=== PATIENT | male | born 1945 | race Caucasian/White ===

== ENCOUNTER 2016-11-07 15:32 | Inpatient (IN) | payer MEDICARE ==
[~2016-11-07] VITALS: Ht 175.3 cm; Wt 100.7 kg
[~2016-11-07 15:32] MED LIST: CARDIZEM CD240 MG PO; COUMADIN10 MG PO; COUMADIN5 MG PO; COUMADIN7.5 MG PO; ELAVIL25 MG PO; GLUCOPHAGE500 MG PO; HYDROCHLOROTH12.5 M1 PO; PLAVIX75 MG PO; SORINE80 MG PO
--- NOTE | 2016-11-07 16:00 | NUR ---
PT RECIEVED DIRECT ADMIT FROM MD OFFICE TO ROOM 3989. ORIENTED TO ROOM AND UNIT WITH VERBAL UNDERSTANDING VOICED. PT IS ALERT AND ORIENTED X 4. IV STARTED IN LFA WITH 22G CATH USING STERILE TECHNIQUE AND 1 STICK. SECURED WITH TAPE AND OPSITE. FLUIDS STARTED.
[2016-11-07 18:03] VITALS: BP 178/101; BMI 32.8
--- NOTE | 2016-11-07 18:08 | NUR ---
PT RESTING IN BED WITH EYES OPEN. NO NEEDS VOICED. NO COMPLAINTS.
[2016-11-07 18:14] LABS: BASOPHILS 0.2 % (0-2); EOSINOPHILS 0.1 % (0-7); HEMATOCRIT 46.3 % (42.0-54.0); HEMOGLOBIN 16.4 g/dL (13.5-17.5); IMMATURE GRANULOCYTES 0.4 % (0-5); LYMPHOCYTES 9.2 % (15-50); MCH 30.1 pg (26.0-34.0); MCHC 35.4 g/dL (31.0-37.0); MCV 85.1 fL (80.0-100.0); MEAN PLATELET VOLUME 11.7 fL (7.4-10.4); NEUTROPHILS 80.1 % (40-80); PLATELET COUNT 200 10x3/uL (130-400); RBC 5.44 10x6/uL (4.20-6.10); WBC 18.2 10x3/uL (4.8-10.8)
[2016-11-07 18:23] LABS: HEMOGLOBIN A1C 10.2 % (4.8-6.0)
[2016-11-07 18:48] LABS: ALBUMIN 2.9 g/dL (3.4-5.0); ALKALINE PHOSPHATASE 71 U/L (46-116); ALT (SGPT) 18 U/L (10-68); BILIRUBIN - TOTAL 2.03 mg/dL (0.2-1.3); CALC OSMOLALITY 284 mosm/kg (275-300); CALCIUM 8.6 mg/dL (8.5-10.1); CARBON DIOXIDE 25.9 mmol/L (21.0-32.0); CHLORIDE - SERUM 99 mmol/L (98-107); CKMB 1.6 U/L (0.0-3.6); CREATINE KINASE 91 UL (21-232); CREATININE - SERUM 1.6 mg/dL (0.6-1.3); POTASSIUM - SERUM 3.8 mmol/L (3.5-5.1); PROTEIN - SERUM 6.6 g/dL (6.4-8.2); SODIUM 135 mmol/L (136-145); TROPONIN-I 0.022 ng/mL (0.000-0.060); UREA NITROGEN 24 mg/dL (7-18); eGFR NON AFRICAN AMERICAN 45 mL/min (90-120)
[2016-11-07 18:49] LABS: GLUCOSE 292 mg/dL (74-106)
[2016-11-07 18:53] LABS: KETONE - SERUM SMALL mg/dL (NEGATIVE)
[2016-11-07 20:00] VITALS: BP 167/70
[2016-11-08] VITALS: BP 158/88
[2016-11-08 04:00] VITALS: BP 158/93
--- NOTE | 2016-11-08 04:00 | NUR ---
PATIENT SLEEPING WITH NO DISTRESS NOTED. AGREE WITH PRESCRIPTION CLERK ASSESSMENT.
[2016-11-08 05:47] LABS: BASOPHILS 0.2 % (0-2); EOSINOPHILS 0.1 % (0-7); HEMATOCRIT 46.7 % (42.0-54.0); HEMOGLOBIN 16.2 g/dL (13.5-17.5); IMMATURE GRANULOCYTES 0.6 % (0-5); LYMPHOCYTES 8.1 % (15-50); MCH 29.9 pg (26.0-34.0); MCHC 34.7 g/dL (31.0-37.0); MCV 86.3 fL (80.0-100.0); MEAN PLATELET VOLUME 11.4 fL (7.4-10.4); MONOCYTES 10.7 % (2-11); NEUTROPHILS 80.3 % (40-80); PLATELET COUNT 196 10x3/uL (130-400); RBC 5.41 10x6/uL (4.20-6.10); RDW 12.8 % (11.5-14.5)
[2016-11-08 05:54] LABS: ANION GAP 12.6 mmol/L (8-16); CALCIUM 8.2 mg/dL (8.5-10.1); CREATININE - SERUM 1.5 mg/dL (0.6-1.3); POTASSIUM - SERUM 3.6 mmol/L (3.5-5.1)
[2016-11-08 06:28] LABS: APPEARANCE SLT CLOUDY (CLEAR); COLOR YELLOW (YELLOW)
[2016-11-08 06:30] LABS: BACTERIA MODERATE /hpf (NONE SEEN); BILIRUBIN NEGATIVE (NEGATIVE); GLUCOSE 1000 mg/dL (NEGATIVE); KETONE NEGATIVE (NEGATIVE); LEUKOCYTE ESTERASE TRACE (NEGATIVE); NITRITE NEGATIVE (NEGATIVE); PROTEIN 3+ mg/dL (NEGATIVE); UROBILINOGEN NORMAL (NORMAL)
[2016-11-08 06:32] LABS: MUCUS <1+ /lpf (NONE SEEN); RED CELLS - URINE 0-5 /hpf (0-5); YEAST <1+ /hpf (NONE SEEN)
--- NOTE | 2016-11-08 07:00 | NUR ---
REPORT RECEIVED FROM SOURCING ENGINEER NURSE. CALL LIGHT IN REACH.
[2016-11-08 07:46] VITALS: BP 174/85
--- NOTE | 2016-11-08 09:47 | NUR ---
ASSESSMENT COMPLETED. AM MEDS ADMINISTERED WITH SIP OF WATER. CONSENT FORMS SIGNED AND WITNESSED. WILL NOW BE NPO. PHARMACY OBTAINED AND PUT IN COMPUTER. CALL LIGHT IN REACH. IN ROOM. WILL CONTINUE WITH PLAN OF CARE.
--- NOTE | 2016-11-08 09:58 | NUR ---
FALL SCORE INCREASED TO 3. DISPOSABLE BED ALARM IS ALREADY ON.
--- NOTE | 2016-11-08 10:38 | NUR ---
PREOP MEDS ADMINISTERED. FSBS 184. DID NOT COVER D/T NPO STATUS. DAUGHTER AND IN ROOM. CALL LIGHT IN REACH.
--- NOTE | 2016-11-08 11:47 | NUR ---
UP TO BR WITH ONE PERSON MIN ASSIST. A/O X3 BUT BALANCE IS OFF. VOIDED CLEAR YELLOW URINE WITHOUT DIFFICULTY. FAMILY AT BEDSDIE. DENIES NEEDS.
[2016-11-08 11:51] VITALS: BP 153/86
--- NOTE | 2016-11-08 12:10 | NUR ---
IS VERY CONFUSED D/T ALZHEIMERS. THE PATIENT WATCHES HER. I ASKED THE STEPDAUGHTER IF SHE COULD TAKE HER WITH HER BECAUSE WHEN HE GOES TO SURGERY, NO ONE WILL BE ABLE TO WATCH HER ONE ON AND ONE AND SHE MIGHT WANDER OFF LIKE THE NURSES SAID SHE WAS THE DAY BEFORE. SHE SAID SHE HAD TO PICK HER DAUGHTER UP SO I ASKED IF SHE COULD TAKE HER WITH HER TO PICK HER DAUGHTER UP BECAUSE WE WOULD NOT BE ABLE TO WATCH HER ONE ON ONE BECAUSE OF THE OTHER PATIENTS WE HAD TO TEND TO. SHE SAID SHE WOULD PICK HER UP AFTER SHE PICKS THE DAUGHTER UP AND TAKE HER TO HER DOCTOR'S APPOINTMENT AT 2:l5. I AGAIN SAID WE CANNOT WATCH HER ONE ON ONE. SHE SAID "SHE WILL BE OH RIGHT" AND WALKED OFF OF THE FLOOR. THE PATIENT DID TRY TO WANDER OFF SEVERAL TIMES BUT THE STAFF TOOK TURNS KEEPING AN EYE ON HER.
[2016-11-08 12:28] VITALS: Ht 175.3 cm; Wt 100.7 kg
--- NOTE | 2016-11-08 13:00 | NUR ---
MARISEL CROCKER, AND MARISEL ALCALA, WERE NOTIFIED OF WHAT WAS GOING ON WITH PATIENT'S . OBI SENT A PSYCHOLOGY ASSOCIATE UP TO HELP SIT WITH HER.
--- NOTE | 2016-11-08 13:27 | NUR ---
Patient Name: JAY JAY MADRID Admission Status: Urgent Accout number: [id number] Admission Date: 11-07-2016 : 1945 Admission Diagnosis:TYPE 2 DIABETES MELLITUS WITH HYPERGLYCEMIA Attending: SUHA Current LOS: 1 Anticipated DC Date: 11-08-2016 Planned Disposition: Home Primary Insurance: [facility] [facility] Discharge Planning Comments: CM MET WITH PT & SPOUSE (STACEY) TO ASSESS DISCHARGE PLANNING/NEEDS. PATIENT STATE DISCHARGE PLAN IS TO RETURN HOME. STATES HOME ENVIRONMENT IS SAFE. PT IS DIABETIC AND HAS 4 GLUCOMETER MACHINES AT HOME. HE IS INDEPENDENT WITH HIS CARE AND DAILY NEEDS. STATES HE HAS A CANE & WALKER AT HOME BUT DOES NOT USE. DENIES ANY NEEDS FOR HH AT THIS TIME. CM WILL CONTINUE TO FOLLOW AND ASSIST NEEDED WITH DISCHARGE PLANNING/NEEDS PCP: ANGIE PHARMACY: [facility] SPOUSE: STACEY ([phone]) Director Of Product Management: Manuela Shepherd * Is the patient Alert and Oriented? Yes 0 * How many steps to enter\exit or inside your home? 0 0 * PCP ANGIE 0 * [facility] * Preadmission Environment Home with Family 0 * ADLs Independent 0 * Equipment [employer] Glucometer Suction and Supplies 0 * List name and contact numbers for known caregivers / representatives who currently or will assist patient after discharge: STACEY (SPOUSE) [phone] 0 * Community resources currently utilized None 0 * Additional services required to return to the preadmission environment? Yes 0 * Can the patient safely return to the preadmission environment? Yes 0 * Has this patient been hospitalized within the prior 30 days at any hospital? No 0
--- NOTE | 2016-11-08 13:30 | NUR ---
TO OR VIA BED.
--- NOTE | 2016-11-08 15:00 | NUR ---
STILL IN OR AT THIS TIME. CALL LIGHT IN REACH.
--- NOTE | 2016-11-08 15:00 | NUR ---
THE STEPDAUGHTER DID NOT COME BACK TO GET THE PATIENT'S LIKE SHE SAID SHE WOULD FOR THE APPOINTMENT
--- NOTE | 2016-11-08 16:02 | NUR ---
FSBS 171
[2016-11-08 16:16] VITALS: BP 151/78
--- NOTE | 2016-11-08 16:17 | NUR ---
RETURNED FROM SURGERY. A/O X3. DRESSING TO LEFT NECK DRY AND INTACT. VSS. AT BEDSIDE.
--- NOTE | 2016-11-08 17:11 | NUR ---
BACK IN ROOM. ACCEPTED PER MARISEL MARCANO. VSS.
--- NOTE | 2016-11-08 17:24 | NUR ---
REQUESTING PAIN MEDS. NORCO PO WITH GABAPENTIN. LOVENOX SUBQ TO RLQ. 2 UNITS INSULIN D/T BS OF 170. PATIENT PULLED DRSG OFF SO NEW DRSG REAPPLIED. FAMILY IN ROOM. CALL LIGHT IN REACH.
--- NOTE | 2016-11-08 18:41 | NUR ---
NO CHANGES IN INITIAL ASSESSMENT. CALL LIGHT IN REACH. IN ROOM. WILL CONTINUE WITH PLAN OF CARE.
[2016-11-08 20:00] VITALS: BP 132/63
[2016-11-09] VITALS: BP 126/52
[2016-11-09 04:00] VITALS: BP 122/60
--- NOTE | 2016-11-09 04:45 | NUR ---
ASSESSED AT THE BEGINNING OF THE SHIFT. PT IS ALERT AND ORIENTED, ABLE TO VERBALIZE NEEDS. HE HAS A DRESSING TO HIS NECK ON LEFT SIDE TO THE BACK. IT WAS CHANGED ONCE DUE TO IT COMING OFF ANYWAY. HE IS IN ISLOLATION FOR POSSIBLE STAFF WHICH IS WAITING RESULTS. THERE IS TELEMETRY IN PLACE. THE BED IS LOW, RAILS UP X'S 2 WITH THE CALL LIGHT AT HAND. AND BED ALARM IN PLACE.
[2016-11-09 05:10] LABS: ANION GAP 11.5 mmol/L (8-16); CALCIUM 7.6 mg/dL (8.5-10.1); CARBON DIOXIDE 26.2 mmol/L (21.0-32.0); CREATININE - SERUM 1.7 mg/dL (0.6-1.3); POTASSIUM - SERUM 3.7 mmol/L (3.5-5.1)
[2016-11-09 05:12] LABS: BASOPHILS 0.2 % (0-2); EOSINOPHILS 0.2 % (0-7); HEMATOCRIT 44.1 % (42.0-54.0); HEMOGLOBIN 15.1 g/dL (13.5-17.5); IMMATURE GRANULOCYTES 0.5 % (0-5); LYMPHOCYTES 11.1 % (15-50); MCHC 34.2 g/dL (31.0-37.0); MCV 87.5 fL (80.0-100.0); MEAN PLATELET VOLUME 11.6 fL (7.4-10.4); MONOCYTES 12.3 % (2-11); NEUTROPHILS 75.7 % (40-80); PLATELET COUNT 198 10x3/uL (130-400); RBC 5.04 10x6/uL (4.20-6.10); RDW 13.1 % (11.5-14.5); WBC 21.1 10x3/uL (4.8-10.8)
--- NOTE | 2016-11-09 07:45 | OP ---
PATIENT NAME: JAY JAY MADRID MEDICAL RECORD: [id number] :[birth year] LOCATION:[id number] ADMISSION DATE:11/07/16 SURGEON: DINAH ZIMMERMAN MD DATE OF OPERATION: 11/08/2016 SURGEON: Dinah Zimmerman MD. PREOPERATIVE DIAGNOSIS: Left posterior neck abscess and cellulitis. POSTOPERATIVE DIAGNOSIS: Left posterior neck abscess and cellulitis. PROCEDURE PERFORMED: Incision and drainage of left posterior neck abscess. ANESTHESIA: General. COMPLICATIONS: None. SPECIMENS: 1. Anaerobic culture. 2. An aerobic culture. 3. Tissue culture. Case was grossly contaminated. ESTIMATED BLOOD LOSS: 5 cc. ANESTHESIA: General. OPERATIVE COURSE: After consent was obtained, the patient was taken to the operating room and placed in supine position on the operating table. General anesthesia was given via laryngeal mask airway. The patient was then placed in the right lateral decubitus position and a timeout was taken to confirm the correct patient and procedure. The posterior neck was prepped and draped in typical sterile fashion. Local anesthetic was administered. An elliptical skin incision was made approximately 3 cm in length, 1 cm width over the apex of the cellulitis. The skin at this area was markedly discolored and purple. The skin ellipse was sent for tissue culture. Next, the abscess cavity was bluntly dissected, approximately 30-40 cc of purulent material were expressed from the wound. Anaerobic and aerobic fluid cultures were sent. Finger dissection as well as blunt hemostat dissection was done to break up all loculations within the abscess. It was then irrigated with hydrogen peroxide and normal saline. Once the wound bed appeared clean, it was packed with iodoform gauze and then dressed with gauze and ABDs. At the end of the procedure, all needle and instrument counts were correct. No complications occurred. The patient tolerated the procedure well. TRANSINT:[id number] Voice Confirmation ID: [id number] DOCUMENT ID: [id number] OPERATIVE REPORT [id number] JAY JAY MADRID DINAH ZIMMERMAN MD at 0745 CC: [id number] DICTATION DATE: 11/08/16 1542 LEAD TINNER: 11/08/16 2313 ADM IN [place] [address] [place] [address]
[2016-11-09 08:05] VITALS: BP 136/70
--- NOTE | 2016-11-09 12:15 | NUR ---
CHANGED DRESSING TO LEFT SIDE OF NECK. REMOVED OLD DRESSING. CLEANED WITH SALINE AND STERILE GAUZE. THEN PACKED WITH 1/2 INCH PACKING. APPLIED A HALF PEICE OF 4X4 GAUZE, FOLDED THEN A BORDERED GAUZE. PATIENT TOLERATED WELL. PATIENT'S DAUGHTER, GRANDDAUGHTER AND ALL IN THE ROOM. ALL DENIES NEEDS.
[2016-11-09 12:38] VITALS: BP 137/68
--- NOTE | 2016-11-09 13:00 | NUR ---
PATIENT TRIED TO SIT UP ON THE SIDE OF THE BED WITH ASSIST, PATIENT WAS UNABLE TO MAINTAIN ERRECT. ASSISTED PATIENT LAYING BACK DOWN IN THE BED. CALL LIGHT IN REACH. BED IN LOWEST POSITION, BED RIALS UP X'S 2.
--- NOTE | 2016-11-09 14:00 | NUR ---
PATIENT TRIED TO GET OUT OF THE BED BY HIMSELF, WALKED IN AND SAW PATIENT WITH HIS LEGS OUT OF THE BED. PATIENT STATED "I HAVE TO GO TO THE BATHROOM." ASSISTED PATIENT PUTTING HIS LEGS BACK IN THE BED. EXPLAINED TO PATIENT THAT HE IS VERY WEAK AND CANNOT GET UP BY HIMSELF. PUT PATIENT ON THE BEDPAN. PATIENT FINISHED ON THE BEDPAN, CLEANED HIM UP, THERE WAS A SMALL AMOUNT OF LIQUID STOOL. CHANGED THE PAD. PUT A SHIRLEY ALARM ON. EXPLAINED TO PATIENT ABOUT THE SHIRLEY ALARM, AND SAFETY PRECAUTIONS. PATIENT VERBALIZED UNDERSTANDING AND STATED "I PROMISE I WILL NOT TRY TO GET UP."
--- NOTE | 2016-11-09 14:15 | NUR ---
PATIENT'S THREW UP IN THE FLOOR. CLEANED IT UP. PATIENT CALLED HIS DAUGHTER TO COME TO PICK HER UP.
--- NOTE | 2016-11-09 14:45 | NUR ---
PATIENT'S DAUGHTER CAME AND GOT PATIENT'S AND LEFT.
--- NOTE | 2016-11-09 15:00 | NUR ---
THE STEPDAUGHTER DID NOT COME BACK TO GET THE PATIENT'S LIKE SHE SAID SHE WOULD.
[2016-11-09 16:01] VITALS: BP 173/85
--- NOTE | 2016-11-09 17:15 | NUR ---
PATIENT'S DAUGHTER BACK, I STATED "HOW IS YOUR MOM DOING?" SHE STATED "SHE IS DOING FINE." I STATED "WHERE IS SHE?" SHE STATED "I DROPPED HER OFF AT HOME SO THAT SHE CAN GET SOME REST." I STATED "BY HERSELF?" SHE STATED "YEAH. BUT SHE IS FINE, SHE KNOWS NOT TO GO OUTSIDE." I STATED "ARE YOU SURE ABOUT THAT?" SHE STATED "YEAH, SHE IS FINE." ANOTHER NURSE WALKED UP AND ASKED HOW SHE IS DOING, SHE STATED "SHE IS FINE, WE HAVE GOT TO HURRY UP AND SEE HIM SO THAT WE CAN GET BACK AND CHECK ON HER."
--- NOTE | 2016-11-09 17:25 | NUR ---
PATIENT'S DAUGHTER LEAVING, SHE STATED "WE HAVE GOT TO GET BACK TO THE HOUSE TO CHECK ON HIS ."
--- NOTE | 2016-11-09 17:45 | NUR ---
PATIENT STATED "I KEEP DROPPING EVERYTHING I TRY TO HOLD ON TO. I DROPPED MY CUP, I KEEP SPILLING MY FOOD OUT OF MY SPOON WHEN I AM FEEDING MYSELF, AND SOMETIMES I MISS MY MOUTH." ASKED PATIENT HOW LONG THIS HAS BEEN GOING ON, PATIENT COULD NOT GIVE ME A STRAIGHT ANSWER, ASKED IF IT STARTED BEFORE COMING TO THE HOSPITAL, OR AFTER SURGERY, PATIENT STILL NOT ABLE TO GIVE ME A STRAIGHT ANSWER. PATIENT STATED "UHH.. I AM NOT SURE, I JUST FEEL LIKE I CANNOT THINK STRAIGHT."
--- NOTE | 2016-11-09 19:37 | NUR ---
SPOKE WITH ABOUT PATIENT UNABLE TO MAINTAIN IN AN ERRECT POSITION, PATIENT DROPPING THINGS, AND WHEN FEEDING SELF MISSING HIS MOUTH. HE STATED TO DO A CT SCAN WITHOUT CONSTRAST AND CONSULT .
--- NOTE | 2016-11-09 19:38 | NUR ---
THE PATIENT'S BECAME SICK EARLIER AND STARTED VOMITING. THE PATIENT HAD A HARD TIME CALLING HIS DAUGHTER TO PICK HER UP. HE EVENTUALLY GOT A HOLD OF HER AND SHE PICKED HER UP. SHE CAME BACK LATER BUT HIS WAS NOT WITH HER. WHEN ASKED WHERE WAS SHE, SHE SAID THAT SHE LEFT HER AT HOME BY HERSELF AND SHE "KNEW NOT TO WALK OUTSIDE". THE PATIENT'S GRANDDAUGHTER SAID THAT SHE DOES WALK OUTSIDE ALONE SOMETIMES. THE PATIENT TRIED HIS BEST TO WATCH THE BY HIMSELF WHILE SHE WAS HERE BUT HE WAS INCAPABLE D/T HIM BEING SICK AT THIS TIME.
--- NOTE | 2016-11-09 19:58 | NUR ---
SPOKE WITH , NOTIFIED HIM OF CONSULT AND PATIENT'S CONDITION. HE STATED "DO A STAT CT WITHOUT CONTRAST AND HAVE SOMEONE TO CALL ME WITH RESULTS."
[2016-11-09 20:00] VITALS: BP 147/79
--- NOTE | 2016-11-09 20:02 | NUR ---
SPOKE WITH AMY FROM CT, NOTIFIED HER THAT REQUESTED TO BE CALLED WITH THE RESULTS OF THE CT SCAN OF THE HEAD WITHOUT CONTRAST.
[2016-11-10] VITALS: BP 120/54
--- NOTE | 2016-11-10 00:45 | NUR ---
ASSESSED AT THE BEGINNING OF THE SHIFT. PT IS ALERT AND ORIENTED BUT IS HAVING PROBLEMS WITH HIS COORDINATION. THERE IS A DRESSING TO HIS LEFT NECK AREA AND IT WAS REPLACED AT THE FIRST OF SHIFT WHEN HE WER THE BED AND WAS CLEANED UP. MD ORDERED A CT SCAN OF HIS HEAD WHICH WAS DONE AND WHEN HE RETURNED DUE TO HIS COMPLAINS OF HEADACHE HE RECEIVED A NORCO. THE BED IS LOW, RAILS UP X'S 2 WITH THE CALL LIGHT AT HAND.
[2016-11-10 04:00] VITALS: BP 161/59
[2016-11-10 04:59] LABS: BASOPHILS 0.2 % (0-2); EOSINOPHILS 0.9 % (0-7); HEMATOCRIT 44.1 % (42.0-54.0); HEMOGLOBIN 15.1 g/dL (13.5-17.5); IMMATURE GRANULOCYTES 0.6 % (0-5); LYMPHOCYTES 11.3 % (15-50); MCH 29.8 pg (26.0-34.0); MCHC 34.2 g/dL (31.0-37.0); MEAN PLATELET VOLUME 10.9 fL (7.4-10.4); MONOCYTES 13.4 % (2-11); NEUTROPHILS 73.6 % (40-80); PLATELET COUNT 188 10x3/uL (130-400); RBC 5.07 10x6/uL (4.20-6.10); RDW 12.9 % (11.5-14.5); WBC 17.4 10x3/uL (4.8-10.8)
[2016-11-10 05:15] LABS: ALBUMIN 2.3 g/dL (3.4-5.0); ANION GAP 11.9 mmol/L (8-16); BILIRUBIN - TOTAL 1.9 mg/dL (0.2-1.3); CALCIUM 8.1 mg/dL (8.5-10.1); CARBON DIOXIDE 27.7 mmol/L (21.0-32.0); CREATININE - SERUM 1.8 mg/dL (0.6-1.3); POTASSIUM - SERUM 3.6 mmol/L (3.5-5.1); PROTEIN - SERUM 6.6 g/dL (6.4-8.2)
--- NOTE | 2016-11-10 07:15 | NUR ---
REPORT RECEIVED FROM MANUFACTURING ENGINEER MACHINING NURSE. CALL LIGHT IN REACH.
[2016-11-10 07:44] VITALS: BP 120/68
--- NOTE | 2016-11-10 09:47 | NUR ---
NORBERTO WITH AM MEDS ADMINISTERED. CALL LIGHT IN REACH.
--- NOTE | 2016-11-10 11:20 | NUR ---
NO NEEDS VOICED AT THIS TIME. CALL LIGHT IN REACH.
[2016-11-10 12:40] VITALS: BP 145/73
--- NOTE | 2016-11-10 13:50 | NUR ---
RESTING WITH EYES CLOSED. RESE EVEN AND UNALBORED. CALL LIGHT IN REACH.
[2016-11-10 15:50] VITALS: BP 157/88
--- NOTE | 2016-11-10 15:50 | NUR ---
DENIES NEEDS AT THIS TIME. CALL LIGHT IN REACH.
--- NOTE | 2016-11-10 17:00 | NUR ---
EYES CLOSED. NO DISTRESS NOTED. CALL LIGHT IN REACH.
--- NOTE | 2016-11-10 18:00 | NUR ---
NO CHANGES IN INITIAL ASSESSMENT. CALL LIGHT IN REACH. WILL CONTINUE WITH PLAN OF CARE.
[2016-11-10 20:00] VITALS: BP 153/73
--- NOTE | 2016-11-10 20:00 | NUR ---
ASSESSMENT PER FLOWSHEET. PT IN CONTACT ISOLATION. DRESSING TO LEFT NECK C/D/I. IV PATENT LEFT FOREARM OF NS AT 50CC'S/HR SITE CLEAR. SR UP X2 CALL LIGHT WITHIN REACH SHIRLEY ALARM MAT ON. ALARMS ACTIVATED.
--- NOTE | 2016-11-10 21:15 | NUR ---
MEDS GIVEN PER MAR. ZHTP=[id number]. HUMALOG INSULIN 2 UNITS GIVEN SUBC PER S/S.
--- NOTE | 2016-11-11 | NUR ---
EYES CLOSED RESPIRATIONS WITH EASE AND UNLABORED. NPO FOR CT SCAN WITH CONTRAST IN AM AND FLUORO NEEDLE PLACEMENT.
[2016-11-11 00:09] VITALS: BP 148/76
--- NOTE | 2016-11-11 02:00 | NUR ---
EYES CLOSED RESPIRATIONS WITH EASE AND UNLABORED.
[2016-11-11 04:00] VITALS: BP 172/73
--- NOTE | 2016-11-11 04:19 | NUR ---
UP WITH HELP TO BR FOR BM.
[2016-11-11 04:38] LABS: BASOPHILS 0.3 % (0-2); EOSINOPHILS 2.1 % (0-7); HEMATOCRIT 45.2 % (42.0-54.0); HEMOGLOBIN 15.7 g/dL (13.5-17.5); IMMATURE GRANULOCYTES 0.9 % (0-5); LYMPHOCYTES 10.2 % (15-50); MCHC 34.7 g/dL (31.0-37.0); MCV 86.4 fL (80.0-100.0); MEAN PLATELET VOLUME 10.8 fL (7.4-10.4); MONOCYTES 10.7 % (2-11); NEUTROPHILS 75.8 % (40-80); PLATELET COUNT 210 10x3/uL (130-400); RBC 5.23 10x6/uL (4.20-6.10); RDW 12.8 % (11.5-14.5); WBC 14.9 10x3/uL (4.8-10.8)
[2016-11-11 04:56] LABS: ALBUMIN 2.2 g/dL (3.4-5.0); ANION GAP 11.4 mmol/L (8-16); BILIRUBIN - TOTAL 1.2 mg/dL (0.2-1.3); CALCIUM 8.5 mg/dL (8.5-10.1); CARBON DIOXIDE 27.3 mmol/L (21.0-32.0); CREATININE - SERUM 1.5 mg/dL (0.6-1.3); POTASSIUM - SERUM 3.7 mmol/L (3.5-5.1); PROTEIN - SERUM 6.7 g/dL (6.4-8.2)
--- NOTE | 2016-11-11 05:17 | NUR ---
UP WITH HELP TO BR VOIDED AND HAD A LARGE SOFT BM. ASSISTED BACK TO BED. SR UP X2 CALL LIGHT WITHIN REACH REACTIVATED SHIRLEY MAT BED ALARM.
--- NOTE | 2016-11-11 07:30 | NUR ---
ASSESSMENT PER FLOW SHEET.PT WITHOUT DISTRESS.CALL LIGHT IN REACH
--- NOTE | 2016-11-11 07:30 | NUR ---
IV TO LEFT FOREARM TENDER WITH SOME SWELLING.IVF STOPPED.
[2016-11-11 07:48] LABS: APTT 35.7 SECONDS (22.8-39.4); INR 1.15 (0.85-1.17); PROTIME 14.6 SECONDS (11.6-15.0)
[2016-11-11 07:59] VITALS: BP 156/77
--- NOTE | 2016-11-11 08:16 | NUR ---
IV LEFT FOREARM DC'D WITH CATH INTACT.I SITED TO RIGHT FOREARM X1 STICK USING ASEPTIC TECH,20G.PT TOLERATED WELL. REMAINS NPO FOR TESTING.
[2016-11-11 12:07] VITALS: BP 177/84
--- NOTE | 2016-11-11 15:16 | NUR ---
Nutrition education for DMT2: Pt with a 6-pack of regular Mt Dew, 20 oz, in room. Pt is currently drinking one. 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 Pt is weepy during my visit. RDN reviewed DMT2 diet recommedations. Discussed portion control, not skipping meals and eating meals about the same time every day. Pt is very bad to skip meals and overeats at meals. Reviewed CHO containing foods with emphasis on portion sizes. Stongly encouraged pt to send Mt Dew home with family or to throw in the trash. Pt not sure he is ready to throw them away. I encouraged pt to drink only water to quench thrist and an occasional diet soda would be okay. Pt continues to be weepy. Pt states he has 6 glucometers at home with no test strips. Pt states the phramacy would not let him get any without a script?? I told him to buy the [employer] brand glucometer, onSync, for $4.00 and 50 strips for $11.00 without a script. Pt obviously not ready to make too many lifesyle changes at this time. Questions answered. RDN provided printed diet information and RDN name and phone number. RDN will be available if needed. Thank you for the consult.
[2016-11-11 16:32] VITALS: BP 170/90
--- NOTE | 2016-11-11 17:00 | NUR ---
REMAINS WITHOUT NEEDS.FAMILY TO VISIT.PT DECLINES INSULIN,STATES HIS BLOOD SUGAR WILL DROP LOW.
--- NOTE | 2016-11-11 17:02 | NUR ---
CM REASSESSMENT NOTE: PATIENT SIGNED THE [facility]RIST[facility] FORM WITH [facility]. REFERRAL TO BE SENT.
--- NOTE | 2016-11-11 17:02 | NUR ---
PT STILL DECLINES SHOWER AT THIS TIME.
--- NOTE | 2016-11-11 18:43 | NUR ---
REMAINS WITHOUT NEEDS,WITHOUT CHANGE.CONT PLAN OF CARE
[2016-11-11 20:00] VITALS: BP 166/83
--- NOTE | 2016-11-11 20:00 | NUR ---
ASESSMENT PER FLOWSHEET. IV PATENT RT FOREARM OF NS AT 50CC'S/HR SITE CLEAR. TELM. SHOWS PACED AT 62-64.
--- NOTE | 2016-11-11 21:15 | NUR ---
MEDS GIVEN PER MAR.
[2016-11-12] VITALS: BP 172/88
--- NOTE | 2016-11-12 | NUR ---
NPO FOR RADIOLOGY PROCEDURE.
--- NOTE | 2016-11-12 03:00 | NUR ---
UP WITH HELP TO BR VOIDS AND HAD SMALL STOOL.
[2016-11-12 04:00] VITALS: BP 185/87
[2016-11-12 04:59] LABS: BASOPHILS 0.3 % (0-2); EOSINOPHILS 2.5 % (0-7); HEMATOCRIT 40.9 % (42.0-54.0); IMMATURE GRANULOCYTES 0.7 % (0-5); LYMPHOCYTES 13.2 % (15-50); MCH 29.4 pg (26.0-34.0); MCHC 34.2 g/dL (31.0-37.0); MCV 85.7 fL (80.0-100.0); MEAN PLATELET VOLUME 11.1 fL (7.4-10.4); MONOCYTES 13.4 % (2-11); NEUTROPHILS 69.9 % (40-80); PLATELET COUNT 186 10x3/uL (130-400); RBC 4.77 10x6/uL (4.20-6.10); RDW 12.7 % (11.5-14.5); WBC 11.4 10x3/uL (4.8-10.8)
[2016-11-12 05:07] LABS: APTT 30.6 SECONDS (22.8-39.4); INR 1.2 (0.85-1.17); PROTIME 15.1 SECONDS (11.6-15.0)
[2016-11-12 05:10] LABS: ANION GAP 10.2 mmol/L (8-16); CALCIUM 7.9 mg/dL (8.5-10.1); CARBON DIOXIDE 28.5 mmol/L (21.0-32.0); CREATININE - SERUM 1.3 mg/dL (0.6-1.3); MAGNESIUM - SERUM 1.8 mg/dL (1.8-2.4); POTASSIUM - SERUM 3.7 mmol/L (3.5-5.1)
--- NOTE | 2016-11-12 06:00 | NUR ---
MEDS GIVEN PER MAR,.
--- NOTE | 2016-11-12 07:21 | NUR ---
REMAINS NPO RESTING QUIETLY DENIES NEEDS.
--- NOTE | 2016-11-12 07:40 | NUR ---
ASSESSMENT PER FLOW SHEET.PT WITHOUT DISTRESS.NPO FOR PROCEDURE TODAY. CALL LIGHT IN REACH
--- NOTE | 2016-11-12 08:26 | NUR ---
TO IR VIA BED FOR PROCEDURE THIS AM
[2016-11-12 08:28] VITALS: BP 157/74
--- NOTE | 2016-11-12 09:45 | NUR ---
BACK FROM IR VIA BED.HOB 30 DEGREES.BREAKFAST TRAY FOR PT,THEN I WILL GIVE AM MEDS
--- NOTE | 2016-11-12 12:30 | NUR ---
REMAINS WITHOUT DISTRESS.DENIES NEED.CALL LIGHT IN REACH
[2016-11-12 12:42] VITALS: BP 155/75
--- NOTE | 2016-11-12 14:47 | NUR ---
IV RIGHT FOREARM TENDER,IV DCD WITH CATH INTACT.IV RESITED BY JEET DOWD RNUSING ASEPTIC TECH,X1 STICK 22G.
[2016-11-12 16:38] VITALS: BP 158/71
--- NOTE | 2016-11-12 18:34 | NUR ---
REMAINS WITHOUT NEEDS,WITHOUT CHANGE.CONT PLAN OF CARE
[2016-11-12 20:00] VITALS: BP 167/73
--- NOTE | 2016-11-12 20:00 | NUR ---
ASSESSMENT PER FLOWSHEET. IV PATENT LEFT FOREARM OF NS AT 50CC'S/HR SITE CLEAR. SHIRLEY MAT ON FOR FALL PRECAUTIONS. TELM. SHOWS CONTROLED ATRIAL FLUTTER WITH HR 63. DRESSING TO LEFT NECK WOUND C/D/I.
--- NOTE | 2016-11-12 21:00 | NUR ---
MEDS GIVEN PER MAR. LKST=[id number] HUMALOG INSULIN 4 UNITS GIVEN SUBC PER S/S
[2016-11-13] VITALS: BP 155/81
--- NOTE | 2016-11-13 | NUR ---
EYES CLOSED RESPIRATIONS WITH EASE AND UNLABORED.
--- NOTE | 2016-11-13 01:28 | NUR ---
RESTING QUIETLY NO COMPLAINTS.
[2016-11-13 03:11] LABS: OVA + PARASITE EXAM Final report (())
[2016-11-13 04:00] VITALS: BP 155/82
[2016-11-13 04:57] LABS: BASOPHILS 0.4 % (0-2); EOSINOPHILS 2.9 % (0-7); HEMATOCRIT 42.2 % (42.0-54.0); HEMOGLOBIN 14.4 g/dL (13.5-17.5); IMMATURE GRANULOCYTES 0.9 % (0-5); LYMPHOCYTES 16.7 % (15-50); MCH 29.4 pg (26.0-34.0); MCHC 34.1 g/dL (31.0-37.0); MCV 86.1 fL (80.0-100.0); MEAN PLATELET VOLUME 10.9 fL (7.4-10.4); MONOCYTES 10.6 % (2-11); NEUTROPHILS 68.5 % (40-80); PLATELET COUNT 214 10x3/uL (130-400); RDW 12.9 % (11.5-14.5); WBC 10.4 10x3/uL (4.8-10.8)
[2016-11-13 05:29] LABS: CALCIUM 8.3 mg/dL (8.5-10.1); CARBON DIOXIDE 28.5 mmol/L (21.0-32.0); CREATININE - SERUM 1.4 mg/dL (0.6-1.3); POTASSIUM - SERUM 3.5 mmol/L (3.5-5.1)
[2016-11-13] MEDS ORDERED: AMPICILLIN TRI250 MG PO (07:10)
[2016-11-13] MEDS ORDERED: BACTRIM DS TABL1 TAB PO (07:11)
[2016-11-13] MEDS ORDERED: ELIQUIS2.5 MG PO (07:12)
[2016-11-13] MEDS ORDERED: LISINOPRIL10 MG PO (07:13)
[2016-11-13] MEDS ORDERED: PRAVACHOL20 MG PO (07:14)
[2016-11-13] MEDS ORDERED: GLUCOTROL XL 1010 MG PO (07:15)
[2016-11-13 07:56] VITALS: BP 185/89
--- NOTE | 2016-11-13 08:03 | NUR ---
CM REASSESSMENT NOTE: PATIENT IS DISCHARGING HOME TODAY-DAUGHTER (SCOTTY) IS DRIVING. [facility] NOTIFIED OF DISCHARGE. IMM SERVED
--- NOTE | 2016-11-13 08:10 | NUR ---
ASSESSMEN TPER FLOW SHEET.PT WITHOUT DISTRESS.FALL PREVENTION IN PROGRESS.CALL LIGHT IN REACH
--- NOTE | 2016-11-13 11:33 | NUR ---
WANTED SHOWER BEFORE DC HOME.SHOWER COMPLETE.DRESSING TO LEFT POSTERIOR NECK USING ASEPTIC TECH.
--- NOTE | 2016-11-13 12:03 | NUR ---
DISCHARGE INSTRUCTIONS,STATES UNDERSTANDING.WAITING FOR RIDE
--- NOTE | 2016-11-13 12:16 | NUR ---
LEFT UNIT VIA WHEELCHAIR.
== END 2016-11-13 12:16 | disposition home health service (06) | DRG 603 ==
LOC: D.MS 15:32
PROVIDERS: Family Medicine; General Practice; ADMIT Family Medicine
PROC: 0H94XZZ Drainage of Neck Skin, External Approach (ICD-10-PCS; 2016-11-08)
PROC: B01B1ZZ Fluoroscopy of Spinal Cord using Low Osmolar Contrast (ICD-10-PCS; principal; 2016-11-12)
DX: L03.221 Cellulitis of neck (principal); L02.11 Cutaneous abscess of neck; E11.65 Type 2 diabetes mellitus with hyperglycemia; R11.2 Nausea with vomiting, unspecified; R19.7 Diarrhea, unspecified; E78.5 Hyperlipidemia, unspecified; I10 Essential (primary) hypertension

== ENCOUNTER → 2016-11-07 20:26 | Outpatient (CLI) | payer MEDICARE ==
--- NOTE | ~2016-11-07 | HP ---
PATIENT: JAY JAY MADRID MEDICAL RECORD: [id number] ACCOUNT: [id number] LOCATION:[facility] : 43 ADMISSION DATE: 11/07/16 HISTORY AND PHYSICAL EXAMINATION DATE OF ADMISSION: 11/07/2016 CHIEF COMPLAINT: Nausea, vomiting and diarrhea for the past 3-4 days, also sore lesion behind the left ear. HISTORY OF PRESENT ILLNESS: The patient is a 71-year-old gentleman with longstanding history of having hypertension. He has also had diabetes mellitus. The patient states for the last several days, he has been nauseated. He has been vomiting. He has had loose stools 7-8 times last night. The patient states he has been unable to take in his medications, has been unable to hold anything on the stomach. He developed a ____ on the left side of his neck over a week ago, which has been draining. He has had low-grade fever. The patient states he just does not feel well. PAST MEDICAL HISTORY: Significant for having diabetes mellitus and hypertension. He has had hyperlipidemia. He has had peripheral neuropathy in the past. FAMILY HISTORY: Significant mother had hypothyroidism, also was diabetic, hypertension. Father of lung cancer. MEDICATIONS: His medications, which he has not been taking are amlodipine 10 mg 1 p.o. daily, Eliquis 2.5 mg b.i.d., gabapentin 800 mg 3 times a day, Levemir 60 units subQ b.i.d., lisinopril 40 mg once a daily, metoprolol tartrate 100 mg b.i.d., pravastatin 40 mg once a day, sotalol 80 mg b.i.d., secondary to atrial fibrillation and vitamin D3 2000 international units once a day. ALLERGIES: He has no known drug allergies. SOCIAL HISTORY: The patient has worked as [employer] in the past. He is educated through the eleventh grade. He is currently . He does have an occasional beer. He denies any cigarette use or abuse. He was born and raised in [place], [place]. REVIEW OF SYSTEMS: CONSTITUTIONAL: He denies any headaches, seizure, or syncope. Denies any change in visual or auditory acuity. PULMONARY: He denies any shortness of breath, cough or congestion. CARDIOVASCULAR: He has had no chest pain, palpitation, PND or orthopnea. GASTROINTESTINAL: As stated above. GENITOURINARY: No urgency, frequency, or dysuria. PHYSICAL EXAMINATION: GENERAL: The patient lost approximately 15 pounds over the last month. His height is 5 feet 9 inches, his weight is 221. VITAL SIGNS: Blood pressure 136/78, his pulse is 128, respirations are 14 and temperature is 97. He is alert and oriented times 3. HEENT: Unremarkable. The patient does have a 4-cm necrotic lesion just inferior to the left occipital condyle. The area had been prepped in the office with alcohol, 1% lidocaine was used as local, an 11 blade was used to excise. HISTORY AND PHYSICAL [id number] JAY JAY MADRID Culture was obtained, purulent material was returned. NECK: Otherwise, unremarkable. HEART: Slightly tachycardic. LUNGS: Clear. ABDOMEN: Soft, nontender. EXTREMITIES: Lower extremities had no edema. LABORATORY DATA: He had a CBC today, white count showed elevation to approximately 18,000. ASSESSMENT: 1. Uncontrolled diabetes mellitus, blood sugar 357. 2. Nausea, vomiting and diarrhea. 3. Possible MRSA, lesion to the left side of the neck. 4. Hyperlipidemia. 5. Hypertension. PLAN: The patient will be admitted for IV hydration. He will be placed on Humalog sliding scale. Also, vancomycin 1 gram q.12 hours, pharmacy will dose, peak and trough. Continue to evaluate this. TRANSINT:[id number] Voice Confirmation ID: [id number] DOCUMENT ID: [id number] DINAH ADAMS MD CC: [id number] DICTATION DATE: 11/07/161736 FOOD CHECKER: 11/07/162229 [facility] CLI 11/07/16 [place] [id number] [place] [id number]
[2016-11-07 18:03] VITALS: BMI 32.8
== END | disposition home or self-care (01) ==
LOC: D.LABREF 20:26
DX: L72.3 Sebaceous cyst (principal)

== ENCOUNTER 2018-08-10 07:08 | Inpatient (IN) | payer OTHER ==
[~2018-08-10] VITALS: Ht 175.3 cm; Wt 104.3 kg
[~2018-08-10 07:08] MED LIST changes: +AMPICILLIN TRI250 MG PO; +BACTRIM DS TABL1 TAB PO; +ELIQUIS2.5 MG PO; +GLUCOTROL XL 1010 MG PO; +LISINOPRIL10 MG PO; +PRAVACHOL20 MG PO
--- NOTE | 2018-08-10 07:54 | NUR ---
PT RETURNED TO THE ED VIA STRETCHER FOLLOWING ORDERED CT SCAN. SIDE RAILS RAISED X2, CALL LIGHT IN REACH.
--- NOTE | 2018-08-10 08:20 | NUR ---
URINE SAMPLE AND INFLUENZA SWAB SENT TO THE LAB AT THIS TIME.
[2018-08-10 08:30] LABS: BASOPHILS 0.2 % (0-2); EOSINOPHILS 0.2 % (0-7); HEMATOCRIT 45.6 % (42.0-54.0); HEMOGLOBIN 16.3 g/dL (13.5-17.5); IMMATURE GRANULOCYTES 0.9 % (0-5); LYMPHOCYTES 6.3 % (15-50); MCH 29.4 pg (26.0-34.0); MCHC 35.7 g/dL (31.0-37.0); MCV 82.3 fL (80.0-100.0); MEAN PLATELET VOLUME 10.8 fL (7.4-10.4); MONOCYTES 6.5 % (2-11); NEUTROPHILS 85.9 % (40-80); PLATELET COUNT 185 10x3/uL (130-400); RBC 5.54 10x6/uL (4.20-6.10); RDW 13.7 % (11.5-14.5); WBC 19.8 10x3/uL (4.8-10.8)
[2018-08-10 08:41] LABS: ALBUMIN 2.9 g/dL (3.4-5.0); ALKALINE PHOSPHATASE 69 U/L (46-116); ALT (SGPT) 13 U/L (10-68); CALC OSMOLALITY 284 mosm/kg (275-300); CALCIUM 9.3 mg/dL (8.5-10.1); CARBON DIOXIDE 26.8 mmol/L (21.0-32.0); CHLORIDE - SERUM 101 mmol/L (98-107); CREATININE - SERUM 1.8 mg/dL (0.6-1.3); POTASSIUM - SERUM 4.7 mmol/L (3.5-5.1); PROTEIN - SERUM 8.1 g/dL (6.4-8.2); SODIUM 137 mmol/L (136-145); UREA NITROGEN 20 mg/dL (7-18); eGFR NON AFRICAN AMERICAN 39 mL/min (90-120)
[2018-08-10 08:42] LABS: GLUCOSE 246 mg/dL (74-106)
[2018-08-10 08:46] LABS: INR 1.24 (0.85-1.17); PROTIME 15.1 SECONDS (11.6-15.0)
[2018-08-10 08:47] LABS: APTT 29.9 SECONDS (22.8-39.4)
[2018-08-10 08:52] LABS: CKMB 1.2 U/L (0.0-3.6); CREATINE KINASE 82 UL (21-232); MAGNESIUM - SERUM 1.6 mg/dL (1.8-2.4); TROPONIN-I 0.039 ng/mL (0.000-0.060)
[2018-08-10 09:05] LABS: APPEARANCE SL CLDY (CLEAR); BACTERIA MODERATE /hpf (NONE SEEN); BILIRUBIN NEGATIVE (NEGATIVE); COLOR YELLOW (YELLOW); EPITHELIAL CELLS OCC /hpf (0-5); GLUCOSE 100 mg/dL (NEGATIVE); KETONE NEGATIVE (NEGATIVE); MUCUS <1+ /lpf (NONE SEEN); NITRITE POSITIVE (NEGATIVE); PROTEIN 3+ mg/dL (NEGATIVE); RED CELLS - URINE 0-5 /hpf (0-5); UROBILINOGEN NORMAL (NORMAL); WHITE CELLS - URINE 25-50 /hpf (0-5)
[2018-08-10 10:24] VITALS: BP 142/82
--- NOTE | 2018-08-10 11:15 | MORECARE ---
CASE MANAGEMENT DISCHARGE SUMMARY PATIENT: JAY JAY MADRID UNIT: [id number] ADM DATE: 08/10/18 AGE: 73 : 43 SEX: M ROOM/BED: D.2139 AUTHOR: PHUONG HADLEY PHYSICIAN: REFERRING PHYSICIAN: STEPHANIE REYES MD DATE OF SERVICE: 08/10/18 Discharge Plan Patient Name: JAY JAY MADRID [facility] [facility] 1945 Planned Disposition: Home Anticipated Discharge Date: 08/15/18 Discharge Date: Expected LOS: 5 Initial Reviewer: [email or web address] Initial Review Date: 08/10/2018 Generated: 08/10/18 12:14 pm Patient Name: JAY JAY MADRID Page 13088 at 1115 All edits/amendments must be made on the electronic document DICTATION DATE: 08/10/18 1114 PROTECTION CONSULTANT: MO 08/10/18 1114 RPT#: [id number] DE DATE: STATUS: ADM IN [facility] [address] [place] [address] END OF REPORT
--- NOTE | 2018-08-10 11:22 | MORECARE ---
CASE MANAGEMENT DISCHARGE SUMMARY PATIENT: JAY JAY MADRID UNIT: [id number] ADM DATE: 08/10/18 AGE: 73 : 44 SEX: M ROOM/BED: D.2139 AUTHOR: PHUONG HADLEY PHYSICIAN: REFERRING PHYSICIAN: STEPHANIE REYES MD DATE OF SERVICE: 08/10/18 Discharge Plan Patient Name: JAY JAY MADRID [facility] [facility] 1945 Planned Disposition: Home Anticipated Discharge Date: 08/15/18 Discharge Date: Expected LOS: 5 Initial Reviewer: [email or web address] Initial Review Date: 08/10/2018 Generated: 08/10/18 12:22 pm DCPIA - Discharge Planning Initial Assessment Updated by [email or web address]: Destiny Childs on 08/10/18 11:15 am * Is the patient Alert and Oriented? Yes * How many steps to enter\exit or inside your home? None * PCP Dr. Caldera * Pharmacy [facility] * Preadmission Environment Home Alone * ADLs Independent * Equipment Crutch Rolling Walker * List name and contact numbers for known caregivers / representatives who currently or will assist patient after discharge: Bronwyn [place] - daughter - he couldn't remember phone number. * Verbal permission to speak to the caregivers and representatives has been obtained from the patient. Yes * Community resources currently utilized None * Additional services required to return to the preadmission environment? No * Can the patient safely return to the preadmission environment? Yes * Has this patient been hospitalized within the prior 30 days at any hospital? No Last DP export: 08/10/18 10:15 a Patient Name: JAY JAY MADRID Page [phone] at 1122 All edits/amendments must be made on the electronic document DICTATION DATE: 08/10/181121 HOME HEALTH TRAVEL OT: MO 08/10/181121 RPT#: [id number] DC DATE: STATUS: ADM IN [facility] [address] [place] [address] END OF REPORT
--- NOTE | 2018-08-10 11:30 | MORECARE ---
CASE MANAGEMENT DISCHARGE SUMMARY PATIENT: JAY JAY MADRID UNIT: [id number] ADM DATE: 08/10/18 AGE: 73 : 44 SEX: M ROOM/BED: D.9969 AUTHOR: LEONIEDOC PHYSICIAN: REFERRING PHYSICIAN: STEPHANIE REYES MD DATE OF SERVICE: 08/10/18 Discharge Plan Patient Name: JAY JAY MADRID Facility: [facility]:[place] : 1945 Planned Disposition: Home Anticipated Discharge Date: 08/15/18 Discharge Date: Expected LOS: 5 Initial Reviewer: [email or web address] Initial Review Date: 08/10/2018 Generated: 08/10/18 12:30 pm DCP- Discharge Planning Updated by [email or web address]: Destiny Childs on 08/10/18 10:[address] Patient Name: JAY JAY MADRID Admission Status: ER Accout number: [id number] Admission Date: 08-10-2018 : 1945 Admission Diagnosis: Attending: STEPHANIE REYES Current LOS: 1 Anticipated DC Date: 08-15-2018 Planned Disposition: Home Primary Insurance: leemail Discharge Planning Comments: CM met with patient to complete initial dc planning assessment. CM educated patient on the CM role and verbal consent given by patient to complete assessment. Patient lives at home alone. He reports he is independent in his care at home. At discharge patient plans to return home alone and feels this is a safe discharge. In reviewing chart patient has increased weakness and multiple falls. Nurse reports he is slightly confused and slow to follow commands. He seemed to be able to answer questions for CM accurately for this assessment. CM discussed availability of home health, rehab services, and medical equipment. Patient denied known discharge needs at this time. CM requested a PT consult and order received by Dr. Mancuso for a PT consult. Patient may need rehab or home health at discharge due to his weakness and falls. CM will continue to follow and will assist as needed with dc plans/needs. Door Tender: Destiny Childs DCPIA - Discharge Planning Initial Assessment Updated by [email or web address]: Destiny Childs on 08/10/18 11:15 am * Is the patient Alert and Oriented? Yes * How many steps to enter\exit or inside your home? None * PCP Dr. Caldera * Pharmacy [facility] * Preadmission Environment Home Alone * ADLs Independent * Equipment Crutch Rolling Walker * List name and contact numbers for known caregivers / representatives who currently or will assist patient after discharge: Bronwyn Daniel - daughter - he couldn't remember phone number. * Verbal permission to speak to the caregivers and representatives has been obtained from the patient. Yes * Community resources currently utilized None * Additional services required to return to the preadmission environment? No * Can the patient safely return to the preadmission environment? Yes * Has this patient been hospitalized within the prior 30 days at any hospital? No Last DP export: 08/10/18 10:22 a Patient Name: JAY JAY MADRID Page [phone] at 1130 All edits/amendments must be made on the electronic document DICTATION DATE: 08/10/18 113 SUPERVISOR FIBER LOCKING: MO 08/10/18 1130 RPT#: [id number] [place] DATE: STATUS: ADM IN [facility] [address] [place] [address] END OF REPORT
[2018-08-10 12:02] VITALS: BP 179/84
[2018-08-10 13:16] VITALS: BP 179/84; BMI 34.0
[2018-08-10 16:01] VITALS: BP 152/76
--- NOTE | 2018-08-10 19:30 | NUR ---
RESUMING PATIENT CARE. PATIENT IS ALERT AND ORIENTED, RESTING COMFORTABLY IN BED. RESPIRATIONS ARE EVEN AND UNLABORED. NO S/SOF DISTRESS. NO C/O PAIN. CALL LIGHT WITHIN REACH. WILL CPOC.
[2018-08-10 20:00] VITALS: BP 138/76
--- NOTE | 2018-08-10 22:30 | NUR ---
WHEN PASSING PATIENTS MEDICATION. PATIENT WAS UNSURE OF WHAT HE HAD ALL TAKEN THIS MORNING HE SAID "I DON'T NO THE NAMES OF THE MEDICATION. ALL I KNOW IS I TAKE 7 PILLS IN THE MORNING." PATIENT WANTED TO WAIT UNTIL TOMORROW MORNING TO TAKE ANY MEDS.
[2018-08-11] VITALS: BP 158/85
[2018-08-11 04:00] VITALS: BP 137/59
[2018-08-11 05:35] LABS: BASOPHILS 0.1 % (0-2); EOSINOPHILS 0.1 % (0-7); HEMATOCRIT 41.2 % (42.0-54.0); HEMOGLOBIN 14.1 g/dL (13.5-17.5); IMMATURE GRANULOCYTES 0.7 % (0-5); LYMPHOCYTES 14.3 % (15-50); MCH 28.7 pg (26.0-34.0); MCHC 34.2 g/dL (31.0-37.0); MCV 83.9 fL (80.0-100.0); MEAN PLATELET VOLUME 10.2 fL (7.4-10.4); MONOCYTES 9.4 % (2-11); NEUTROPHILS 75.4 % (40-80); PLATELET COUNT 150 10x3/uL (130-400); RBC 4.91 10x6/uL (4.20-6.10)
[2018-08-11 05:46] LABS: WBC 10.6 10x3/uL (4.8-10.8)
[2018-08-11 05:55] LABS: ALBUMIN 2.2 g/dL (3.4-5.0); ANION GAP 12.6 mmol/L (8-16); BILIRUBIN - TOTAL 1.69 mg/dL (0.2-1.3); CARBON DIOXIDE 26.9 mmol/L (21.0-32.0); CREATININE - SERUM 2.1 mg/dL (0.6-1.3); POTASSIUM - SERUM 4.5 mmol/L (3.5-5.1); PROTEIN - SERUM 6.7 g/dL (6.4-8.2)
--- NOTE | 2018-08-11 07:15 | NUR ---
PT RESTING IN BED, EYES OPEN. NO C/O PAIN. NO S/S OF ACUTE DISTRESS NOTED. PT UP WITH ASSIST. PT ON ELIQUIS. PT FELL AT HOME, ON BP AND HEART MEDS. CULTURE CAME BACK GRAM POSITIVE COCCI EARLY THIS AM. IV TO LEFT AC, NS INFUSING @ 100. SITE PATENT WITHOUT REDNESS OR SWELLING. PT ON TELEMETRY ATRIAL 71 WITH INVERTED T WAVE, OCCASIONAL PVC. PT HAS PACEMAKER. PT DENIES ANYTHING FURTHER AT THIS TIME. CALL LIGHT IN REACH. WILL CONTINUE TO MONITOR.
[2018-08-11 09:47] VITALS: BP 154/64
[2018-08-11 12:15] VITALS: Ht 175.3 cm; Wt 104.3 kg
--- NOTE | 2018-08-11 12:38 | NUR ---
RN ROUNDING DONE AND I AGREE WITH ASSESSMENT PER GILMAR MCNEILL. PATIENT DENIES NEEDS AT THIS TIME.
--- NOTE | 2018-08-11 18:31 | NUR ---
PT RESTING IN BED, EYES CLOSED. RESPIRATIONS EVEN AND UNLABORED. NO C/O PAIN. NO S/S OF ACUTE DISTRESS NOTED. PT DENIES ANYTHING FURTHER AT THIS TIME. CALL LIGHT IN REACH. WILL CONTINUE TO MONITOR.
--- NOTE | 2018-08-11 19:40 | NUR ---
PT RESTING IN BED. PT AAO, NS INFUSING ORDERED. PT HAS ALARM ON AND ACTIVE. WILL CALL FOR ASSIST WHEN NEEDED. PT HAS PACEMAKER LEFT CHEST, S1S2 RRR STATES ABDOMEN IS TENDER, FROM COUGHING. DENIES COUGH AT THIS TIME. STATES IT WAS EARLIER THIS WEEK. STATES NON PRODUCTIVE. PT WILL CALL FOR ASSIST WHEN NEEDED. NO S/S OF DISTRESS. NAME AND DATE PLACED ON BOARD. WILL CPOC
[2018-08-11 20:00] VITALS: BP 135/64
--- NOTE | 2018-08-11 21:45 | NUR ---
PT RECEIVING NIGHT MEDS. REFUSED NIGHT MEDS STATES HE ONLY TAKES MEDS IN THE MORNING. TOLD PT HE CANNOT REFUSE HIS ELIQUIS AT THIS TIME BUT I WILL RETIME HIS OTHER 2 MEDS FOR IN THE MORNING. PT AGREED. NO S/S OF DISTRESS. BEDLOW AND CALL LIGHT IN REACH. WILL CPOC
[2018-08-12] VITALS: BP 139/65
--- NOTE | 2018-08-12 03:40 | NUR ---
PT ASLEEP, RESP EVEN AND UNLABORED. NO S/S OF DISTRESS. BEDLOW AND CALL LIGHT IN REACH. WILL CPOC
[2018-08-12 04:00] VITALS: BP 146/59
--- NOTE | 2018-08-12 05:05 | NUR ---
PT RESTING IN BED. STATES NO BM LAST NIGHT. URINE OUTPUT WNL. PT DECLINES ASSIST WITH REPOSITIONING IN BED. PT MORNING MEDS GIVEN. PT DENIES ANY OTHER NEEDS. NO S/S OF DISTRESS.WILL CPOC
[2018-08-12 05:21] LABS: BASOPHILS 0.4 % (0-2); EOSINOPHILS 0.7 % (0-7); HEMATOCRIT 38.5 % (42.0-54.0); HEMOGLOBIN 13.3 g/dL (13.5-17.5); IMMATURE GRANULOCYTES 0.8 % (0-5); LYMPHOCYTES 17.7 % (15-50); MCH 28.6 pg (26.0-34.0); MCHC 34.5 g/dL (31.0-37.0); MCV 82.8 fL (80.0-100.0); MEAN PLATELET VOLUME 10.3 fL (7.4-10.4); MONOCYTES 17.9 % (2-11); NEUTROPHILS 62.5 % (40-80); PLATELET COUNT 140 10x3/uL (130-400); RBC 4.65 10x6/uL (4.20-6.10); WBC 11.1 10x3/uL (4.8-10.8)
[2018-08-12 05:42] LABS: ALBUMIN 2.1 g/dL (3.4-5.0); BILIRUBIN - TOTAL 1.35 mg/dL (0.2-1.3); CALCIUM 7.6 mg/dL (8.5-10.1); CARBON DIOXIDE 24.9 mmol/L (21.0-32.0); CREATININE - SERUM 1.8 mg/dL (0.6-1.3); POTASSIUM - SERUM 3.9 mmol/L (3.5-5.1); PROTEIN - SERUM 6.5 g/dL (6.4-8.2)
--- NOTE | 2018-08-12 07:30 | NUR ---
AM ROUNDS COMPLETED. INTRODUCED MYSELF TO PT PRIMARY RN FOR TODAYS SHIFT. PT IS A&O SITTING UP IN BED RESTING QUIETLY. SHIFT ASSESSMENT COMPLETED. WILL REVIEW CHART AND ORDERS AND PULL MORNING MEDICATIONS. CL IN REACH, BED IN LOWEST, SIDE RAILS X2. NO CURRENT NEEDS. WILL CTM.
[2018-08-12 08:07] VITALS: BP 146/66
[2018-08-12 12:11] VITALS: BP 131/71
--- NOTE | 2018-08-12 14:42 | NUR ---
INFECTIOUS CONTROL CALLED TO STATE PT NEEDS TO BE ON PRECAUTIONARY CONTACT ISOLATION TO R/O MRSA FROM BLOOD CULTURE. PROPER SIGNS PLACED AND EXPLAINED TO PT AND HE VERBALIZED UNDERSTANDING.
--- NOTE | 2018-08-12 15:19 | NUR ---
Rehab Prescreening Consult recieved and the chart has been reviewed. He is [employer] AD[facility] which will require a preauth for the rehab. He will need a PT and an OT eval for their review. He has an OT eval pending, but has been eval'd by PT. He has only been able to stand at the bedside and refused therapy today. Discussed with the CM Jose Garduno. Yaima Frankel RN Clinical liaison, Rehab
[2018-08-12 15:33] VITALS: BP 133/66
--- NOTE | 2018-08-12 16:44 | MORECARE ---
CASE MANAGEMENT DISCHARGE SUMMARY PATIENT: JAY JAY MADRID UNIT: [id number] ADM DATE: 08/10/18 AGE: 73 : 44 SEX: M ROOM/BED: D.2139 AUTHOR: PHUONG HADLEY PHYSICIAN: REFERRING PHYSICIAN: STEPHANIE REYES MD DATE OF SERVICE: 08/12/18 Discharge Plan Patient Name: JAY JAY MADRID [facility] [facility] 1945 Planned Disposition: Inpatient Rehab Anticipated Discharge Date: 08/15/18 Discharge Date: Expected LOS: 5 Initial Reviewer: [email or web address] Initial Review Date: 08/10/2018 Generated: 08/12/18 5:43 pm Comments DCP- Discharge Planning Updated by [email or web address]: Liam Garduno on 08/12/18 3:[address] Patient Name: JAY JAY MADRID Encounter No: [id number] : 1945 Primary Insurance: NOVASYSMCR Anticipated DC Date: 08-15-2018 Planned Disposition: Inpatient Rehab External Planned Provider: [facility] IN[facility] RE[facility] DCP follow-up note: CM RECEIVED ORDER FOR INPATIENT REHAB PRESCREENING, MET WITH PT IN ROOM, DISCUSSED AVAILABILTY OF REHAB SERVICES, PROVIDERS AND LOCATIONS. PT WANTS REHAB AT [place] ONLY, REPORTS HAVING BEEN THERE BEFORE WITH GOOD RESULT. PT REPORTS HIS THREE MONTHS AGO AND PT HAS BEEN SICK AND GOTTEN WEAK. PT PLANS TO RETURN HOME ALONE AFTER REHAB. CM WAITING INPATIENT REHAB PRESCREENING RESULT AND ADMISSION DETERMINATION FROM [facility] INPATIENT REHAB. PT WILL REQUIRE PRIOR AUTHORIZATION FOR ANY REHAB SERVICES HE HAS MANAGED MEDICARE INSURANCE. EN Eric DCP- Discharge Planning Updated by [email or web address]: Destiny Childs on 08/10/18 10:[address] Patient Name: JAY JAY MADRID Admission Status: ER Accout number: [id number] Admission Date: 08-10-2018 : 1945 Admission Diagnosis: Attending: STEPHANIE REYES Current LOS: 1 Anticipated DC Date: 08-15-2018 Planned Disposition: Home Primary Insurance: NOVASYSMCR Discharge Planning Comments: CM met with patient to complete initial dc planning assessment. CM educated patient on the CM role and verbal consent given by patient to complete assessment. Patient lives at home alone. He reports he is independent in his care at home. At discharge patient plans to return home alone and feels this is a safe discharge. In reviewing chart patient has increased weakness and multiple falls. Nurse reports he is slightly confused and slow to follow commands. He seemed to be able to answer questions for CM accurately for this assessment. CM discussed availability of home health, rehab services, and medical equipment. Patient denied known discharge needs at this time. CM requested a PT consult and order received by Dr. Mancuso for a PT consult. Patient may need rehab or home health at discharge due to his weakness and falls. CM will continue to follow and will assist as needed with dc plans/needs. Gasateria Attendant: Destiny Childs DCPIA - Discharge Planning Initial Assessment Updated by [email or web address]: Destiny Childs on 08/10/18 11:15 am * Is the patient Alert and Oriented? Yes * How many steps to enter\exit or inside your home? None * PCP Dr. Caldera * Pharmacy [facility] * Preadmission Environment Home Alone * ADLs Independent * Equipment Crutch Rolling Walker * List name and contact numbers for known caregivers / representatives who currently or will assist patient after discharge: Bronwyn Krugerue - daughter - he couldn't remember phone number. * Verbal permission to speak to the caregivers and representatives has been obtained from the patient. Yes * Community resources currently utilized None * Additional services required to return to the preadmission environment? No * Can the patient safely return to the preadmission environment? Yes * Has this patient been hospitalized within the prior 30 days at any hospital? No Last DP export: 08/10/18 10:30 a Patient Name: JAY JAY MADRID Page [id number] at 1644 All edits/amendments must be made on the electronic document DICTATION DATE: 08/12/181642 ASSISTANT PROFESSOR OF EDUCATION: MO 08/12/181642 RPT#: [id number] DC DATE: STATUS: ADM IN [facility] [address] [place] [address] END OF REPORT
--- NOTE | 2018-08-12 17:06 | NUR ---
OT NOTE: PT COMPLETED BED MOB AND EOB SITTING WITH SBA. PT COMPLETED BUE AROM EX. THANK YOU, MICHAEL ALBRECHT
--- NOTE | 2018-08-12 18:57 | NUR ---
PT SITTING UP IN BED RESTING QUIETLY. BEDSIDE SHIFT REPORT GIVEN. PT STATES HE FEELS GOOD AND HAD A GOOD DAY. DENIES ANY CURRENT PAIN OR NEEDS. CL IN REACH. EMPTIED URINAL OF 200CC CLEAR YELLOW URINE.
--- NOTE | 2018-08-12 19:42 | NUR ---
PT RESTING IN BED, WATCHING TV. DECLINES ASSIST WITH REPOSITIONING, STATES CAN REPOSITION SELF, NO S/S OF DISTRESS. BEDLOW AND CALL LIGHT IN REACH. NAME AND DATE PLACED ON BOARD. WILL CPOC
[2018-08-12 20:00] VITALS: BP 144/70
--- NOTE | 2018-08-12 21:46 | NUR ---
DOXY EDUCATION GIVEN TO PT. ELIANE AND ELPIDIO GIVEN. PT DENIES ANY QUESTIONS OR CONCERNS. PT HAS 1/2 NS INFUSING ORDERED. PT DENIES ANY NEEDS. WILL CPOC
[2018-08-13] VITALS: BP 171/77
--- NOTE | 2018-08-13 02:28 | NUR ---
PT CALLED NURSE INTO ROOM. PT SITTING ON END OF BED. STATES HE FELL, PT HAS NO OPEN WOUNDS, DENIES HITTING HIS HEAD, ONLY PAIN IS KNEES WHICH HAVE REDNESS NO OPEN AREAS. PT HAS SLIP-FREE SOCKS ON. CALL LIGHT WAS IN REACH. PT STATES HE WAS GOING TO GO HAVE A BM AND HIS FEET SLIPPED OUT FROM UNDER HIM. GOT BP, WILL HAVE WORKDAY DIRECTOR DOCUMENT. ALERTED CHARGE NURSE AND CREPE BOX TENDER. PT IS ALERT AND ORIENTED X4, NO CHANGES FROM PREVIOUS ASSESSMENT OTHER THAN NAUSEA, GAVE PT ZOFRAN ORDERED. PT DENIES ANY OTHER NEEDS. NO S/S OF DISTRESS. PT INSTRUCTED TO CALL FOR ASSIST WHEN GETTING UP. PT VERBALIZED UNDERSTANDING. WILL CPOC
--- NOTE | 2018-08-13 03:58 | NUR ---
SEASTARS COMPLETE. COPY GIVEN TO ATHLETIC EQUIPMENT CUSTODIAN. WILL PLACE NOTE WHEN CALL DOCTOR AND FAMILY. PT AAO. DENIES ANY CHANGES. PT BEDLOW AND CALL LIGHT IN REACH. 2 SIDE RAILS UP, FALL RISK BRACLET PLACED ON PT. SHIRLEY ALARM SET UP FOR PT. ON AND ACTIVE. PT WILL CALL FOR ASSIST WHEN NEEDED. WILL CPOC
[2018-08-13 04:00] VITALS: BP 142/76
--- NOTE | 2018-08-13 05:35 | NUR ---
PT RESTING IN BED. STATES NO CHANGES SINCE LAST NOTE. PT WATCHING MORNING WEATHER. PROTONIX GIVEN. 1/2 NS INFUSING AT 75 ORDERED. SHIRLEY ALARM ON AND ACTIVE. PT WILL CALL FOR ASSIST WHEN NEEDED. BEDLOW AND CALL LIGHT IN REACH. WILL CPOC
--- NOTE | 2018-08-13 06:25 | NUR ---
NIGHTSHIFT NURSE NOTIFIED PRIMARY VALERIANO KENNEDY OF FALL FROM LAST NIGHT. NO INJURIES NOTED AND NO NEW ORDERS.
[2018-08-13 06:41] LABS: BASOPHILS 0.1 % (0-2); EOSINOPHILS 0.8 % (0-7); HEMATOCRIT 39.2 % (42.0-54.0); IMMATURE GRANULOCYTES 0.6 % (0-5); MCH 29.3 pg (26.0-34.0); MCHC 35.7 g/dL (31.0-37.0); MEAN PLATELET VOLUME 10.7 fL (7.4-10.4); MONOCYTES 11.4 % (2-11); NEUTROPHILS 64.1 % (40-80); PLATELET COUNT 165 10x3/uL (130-400); RBC 4.78 10x6/uL (4.20-6.10); RDW 13.9 % (11.5-14.5); WBC 12.6 10x3/uL (4.8-10.8)
[2018-08-13 07:07] LABS: ALBUMIN 2.3 g/dL (3.4-5.0); ANION GAP 13.9 mmol/L (8-16); BILIRUBIN - TOTAL 1.24 mg/dL (0.2-1.3); CALCIUM 7.9 mg/dL (8.5-10.1); CREATININE - SERUM 1.6 mg/dL (0.6-1.3); POTASSIUM - SERUM 3.9 mmol/L (3.5-5.1)
[2018-08-13 08:40] VITALS: BP 165/65
--- NOTE | 2018-08-13 08:58 | NUR ---
PT TOLD NIGHTSHIFT NURSE HE DIDNT WANT HIS DAUGHTER BOTHERED IN MIDDLE OF THE ADVISOR TO COMMAND IN COMBAT AFTER FALL ESPECIALLY SINCE HE WAS FINE. UPON MY MORNING MEDICATION PASS I ASKED HIM IF I NEEDED TO CALL HER NOW AND HE STATES HE ALREADY SPOKE TO HER THIS MORNING AND DOESNT NEED HER CALLED. PT SITTING UP IN BED EATING BREAKFAST AND STATES HE HAS BEEN FALLING A LOT AT HOME LATELY AND IS HOPING TO GO TO REHAB WILL DISCUSS WITH PRIMARY AND INQUIRE ABOUT IT.
[2018-08-13 11:37] VITALS: BP 137/57
--- NOTE | 2018-08-13 12:58 | NUR ---
OT NOTE: PT REPORTED HAVING A FALL LAST NIGHT, BUT REALLY ENDED UP SLIDING OFF THE EDGE OF BED. HE STATED THAT HE WAS NOT INJURED OR IN PAIN. PERFORMED BED MOB WITH EXT TIME AND MIN ASSIST; TRANSFERS WITH USE OF RW AND MIN ASSIST; GROOMING TASKS WITH SET UP; ABLE TO AMB GREATER THAN 75 FT WITH RW, IV, GAIT BELT, AND MIN/MOD ASSIST. PT EXTREMELY FATIGUED UPON RETURNING TO ROOM. HEMANTH KELLY, OTR/L
--- NOTE | 2018-08-13 13:05 | NUR ---
EMPTIED BEDSIDE URINAL OF 250CC CLEAR YELLOW URINE. PT SITTING UP IN BED RESTING QUIETLY. PT STATES HE IS DOING WELL AND DENIES ANY CURRENT PAIN OR NEEDS AT THIS TIME. PT STATES LUNCH WAS GOOD. CL IN REACH, BED IN LOWEST, SIDE RAILS X2. WILL CTM.
[2018-08-13 15:56] VITALS: BP 140/61
--- NOTE | 2018-08-13 16:51 | NUR ---
Rehab Note- Faxed clinicals for review to [facility]. Pending Ref#[id number]. Will await determination for possible inpatient acute rehab stay. Grace Cook RN Clincial Liaison, [facility] Rehab
[2018-08-13 20:00] VITALS: BP 152/65
--- NOTE | 2018-08-13 21:09 | NUR ---
PT RESTING IN BED. NS INFUSING AT 75 TO LEFT AC. PT AAO. DENIES ANY NEEDS. NO S/S OF DISTRESS. ALARM ON AND ACTIVE. PT WILL CALL FOR ASSIST WHEN NEEDED. WILL CPCO
[2018-08-14] VITALS: BP 145/69
[2018-08-14 04:00] VITALS: BP 144/67
[2018-08-14 06:24] LABS: ALBUMIN 2.3 g/dL (3.4-5.0); ANION GAP 12.9 mmol/L (8-16); BILIRUBIN - TOTAL 1.14 mg/dL (0.2-1.3); CALCIUM 7.9 mg/dL (8.5-10.1); CARBON DIOXIDE 24.8 mmol/L (21.0-32.0); CREATININE - SERUM 1.5 mg/dL (0.6-1.3); POTASSIUM - SERUM 3.7 mmol/L (3.5-5.1); PROTEIN - SERUM 7.1 g/dL (6.4-8.2)
[2018-08-14 06:34] LABS: MCHC 35.7 g/dL (31.0-37.0); MCV 81.2 fL (80.0-100.0); MEAN PLATELET VOLUME 10.5 fL (7.4-10.4); PLATELET COUNT 160 10x3/uL (130-400); RBC 5.17 10x6/uL (4.20-6.10); RDW 14.3 % (11.5-14.5); WBC 9.9 10x3/uL (4.8-10.8)
--- NOTE | 2018-08-14 06:35 | NUR ---
PT RESTING IN BED WATCHING THE NEWS. NOURISHMENT PROVIDED. PROTONIX GIVEN ORDERED. PT HAS 175 ML OF URINE YELLOW IN URINAL. EMPTIED AND CHARTED IN OUTPUT. PT HAS NO S/S DENIES ANY NEEDS. PT WILL CALL FOR ASSIST WHEN NEEDED. WILL CPOC
[2018-08-14 08:20] VITALS: BP 163/66
--- NOTE | 2018-08-14 08:43 | NUR ---
AM MEDICATIONS GIVEN WITH ICE WATER REQUESTED. PT STATES HE SLEPT GOOD AND IS JUST HOPING TO GET ACCEPTED INTO REHAB SOON SO HE CAN GO BACK TO WORK. EMPTIED BEDSIDE URINAL OF 200CC CLEAR YELLOW URINE. PT ATE 75% OF BREAKFAST AND DENIES ANY CURRENT PAIN OR NEEDS. CL IN REACH, BED IN LOWEST, SIDE RAILS X2 AND SHIRLEY PAD IN PLACE. WILL CTM.
--- NOTE | 2018-08-14 10:31 | MORECARE ---
CASE MANAGEMENT DISCHARGE SUMMARY PATIENT: JAY JAY MADRID UNIT: [id number] ADM DATE: 08/10/18 AGE: 73 : 44 SEX: M ROOM/BED: D.2139 AUTHOR: PHUONG HADLEY PHYSICIAN: REFERRING PHYSICIAN: STEPHANIE REYES MD DATE OF SERVICE: 08/14/18 Discharge Plan Patient Name: JAY JAY MADRID [facility] [facility] 1945 Planned Disposition: Inpatient Rehab Anticipated Discharge Date: 08/14/18 Discharge Date: Expected LOS: 4 Initial Reviewer: [email or web address] Initial Review Date: 08/10/2018 Generated: 08/14/18 11:31 am Comments DCP- Discharge Planning Updated by [email or web address]: Liam Garduno on 08/12/18 3:[address] Patient Name: JAY JAY MADRID Encounter No: [id number] : 1945 Primary Insurance: NOVASYSMCR Anticipated DC Date: 08-15-2018 Planned Disposition: Inpatient Rehab External Planned Provider: [facility] INPATIENT REH[facility] DCP follow-up note: CM RECEIVED ORDER FOR INPATIENT REHAB PRESCREENING, MET WITH PT IN ROOM, DISCUSSED AVAILABILTY OF REHAB SERVICES, PROVIDERS AND LOCATIONS. PT WANTS REHAB AT [place] ONLY, REPORTS HAVING BEEN THERE BEFORE WITH GOOD RESULT. PT REPORTS HIS THREE MONTHS AGO AND PT HAS BEEN SICK AND GOTTEN WEAK. PT PLANS TO RETURN HOME ALONE AFTER REHAB. CM WAITING INPATIENT REHAB PRESCREENING RESULT AND ADMISSION DETERMINATION FROM [facility] INPATIENT REHAB. PT WILL REQUIRE PRIOR AUTHORIZATION FOR ANY REHAB SERVICES HE HAS MANAGED MEDICARE INSURANCE. EN Eric DCP- Discharge Planning Updated by [email or web address]: Destiny Childs on 08/10/18 10:[address] Patient Name: JAY JAY MADRID Admission Status: ER Accout number: [id number] Admission Date: 08-10-2018 : 1945 Admission Diagnosis: Attending: STEPHANIE REYES Current LOS: 1 Anticipated DC Date: 08-15-2018 Planned Disposition: Home Primary Insurance: NOVASYSMCR Discharge Planning Comments: CM met with patient to complete initial dc planning assessment. CM educated patient on the CM role and verbal consent given by patient to complete assessment. Patient lives at home alone. He reports he is independent in his care at home. At discharge patient plans to return home alone and feels this is a safe discharge. In reviewing chart patient has increased weakness and multiple falls. Nurse reports he is slightly confused and slow to follow commands. He seemed to be able to answer questions for CM accurately for this assessment. CM discussed availability of home health, rehab services, and medical equipment. Patient denied known discharge needs at this time. CM requested a PT consult and order received by Dr. Mancuso for a PT consult. Patient may need rehab or home health at discharge due to his weakness and falls. CM will continue to follow and will assist as needed with dc plans/needs. Reel Blade Bender Furnace Tender: Destiny Childs DCPIA - Discharge Planning Initial Assessment Updated by [email or web address]: Destiny Childs on 08/10/18 11:15 am * Is the patient Alert and Oriented? Yes * How many steps to enter\exit or inside your home? None * PCP Dr. Caldera * Pharmacy [facility] * Preadmission Environment Home Alone * ADLs Independent * Equipment Crutch Rolling Walker * List name and contact numbers for known caregivers / representatives who currently or will assist patient after discharge: Bronwyn Krugerue - daughter - he couldn't remember phone number. * Verbal permission to speak to the caregivers and representatives has been obtained from the patient. Yes * Community resources currently utilized None * Additional services required to return to the preadmission environment? No * Can the patient safely return to the preadmission environment? Yes * Has this patient been hospitalized within the prior 30 days at any hospital? No Last DP export: 08/12/18 3:44 p Patient Name: JAY JAY MADRID Page [phone] at 1031 All edits/amendments must be made on the electronic document DICTATION DATE: 08/14/18 1031 TOMBSTONE ERECTOR: MO 08/14/18 1031 RPT#: [id number] DC DATE: STATUS: ADM IN [facility] [address] [place] [address] END OF REPORT
--- NOTE | 2018-08-14 10:51 | MORECARE ---
CASE MANAGEMENT DISCHARGE SUMMARY PATIENT: JAY JAY MADRID UNIT: [id number] ADM DATE: 08/10/18 AGE: 73 : 44 SEX: M ROOM/BED: D.2139 AUTHOR: PHUONG HADLEY PHYSICIAN: REFERRING PHYSICIAN: STEPHANIE REYES MD DATE OF SERVICE: 08/14/18 Discharge Plan Patient Name: JAY JAY MADRID [facility] 1945 Planned Disposition: Inpatient Rehab Anticipated Discharge Date: 08/14/18 Discharge Date: Expected LOS: 4 Initial Reviewer: [id number] Initial Review Date: 08/10/2018 Generated: 08/14/18 11:50 am Comments DCP- Discharge Planning Updated by [email or web address]: Liam Garduno on 08/14/18 9:[address] Patient Name: JAY JAY MADRID Encounter No: [id number] : 1945 Primary Insurance: NOVASYSMCR Anticipated DC Date: 08-14-2018 Planned Disposition: Inpatient Rehab External Planned Provider: [facility] DCP follow-up note: CM RECEIVED CALL FROM DARCY OF [facility], THEY HAVE INSURANCE AUTHORIZATION FOR INPATIENT REHAB AND CAN ACCEPT TODAY. CM NOTIFIED PT IN ROOM WHO IS IN AGREEMENT WITH DISCHARGE TO INPATIENT REHAB. IMPORTANT MESSAGE FROM MEDICARE PROVIDED AND EXPLAINED. NOTIFY INPATIENT REHAB WHEN DISCHARGE ORDER RECEIVED. [facility] TO CONTACT MED 2 NURSE WITH ROOM NUMBER WHEN READY TO ACCEPT PT AND NURSE REPORT. Liam Garduno, EN MANAGEMENT DCP- Discharge Planning Updated by [email or web address]: Liam Garduno on 08/12/18 3:[address] Patient Name: JAY JAY MADRID Encounter No: [id number] : 1945 Primary Insurance: NOVASYSMCR Anticipated DC Date: 08-15-2018 Planned Disposition: Inpatient Rehab External Planned Provider: [facility] DCP follow-up note: CM RECEIVED ORDER FOR INPATIENT REHAB PRESCREENING, MET WITH PT IN ROOM, DISCUSSED AVAILABILTY OF REHAB SERVICES, PROVIDERS AND LOCATIONS. PT WANTS REHAB AT [place] ONLY, REPORTS HAVING BEEN THERE BEFORE WITH GOOD RESULT. PT REPORTS HIS THREE MONTHS AGO AND PT HAS BEEN SICK AND GOTTEN WEAK. PT PLANS TO RETURN HOME ALONE AFTER REHAB. CM WAITING INPATIENT REHAB PRESCREENING RESULT AND ADMISSION DETERMINATION FROM [facility]. PT WILL REQUIRE PRIOR AUTHORIZATION FOR ANY REHAB SERVICES HE HAS MANAGED MEDICARE INSURANCE. Liam Garduno, CASE MANAGEMENT DCP- Discharge Planning Updated by [id number]: Destiny Childs on 08/10/18 10:[address] Patient Name: JAY JAY MADRID Admission Status: ER Accout number: [id number] Admission Date: 08-10-2018 : 1945 Admission Diagnosis: Attending: STEPHANIE REYES Current LOS: 1 Anticipated DC Date: 08-15-2018 Planned Disposition: Home Primary Insurance: [facility] Discharge Planning Comments: CM met with patient to complete initial dc planning assessment. CM educated patient on the CM role and verbal consent given by patient to complete assessment. Patient lives at home alone. He reports he is independent in his care at home. At discharge patient plans to return home alone and feels this is a safe discharge. In reviewing chart patient has increased weakness and multiple falls. Nurse reports he is slightly confused and slow to follow commands. He seemed to be able to answer questions for CM accurately for this assessment. CM discussed availability of home health, rehab services, and medical equipment. Patient denied known discharge needs at this time. CM requested a PT consult and order received by Dr. Mancuso for a PT consult. Patient may need rehab or home health at discharge due to his weakness and falls. CM will continue to follow and will assist as needed with dc plans/needs. Social Worker Masters: Destiny Childs DCPIA - Discharge Planning Initial Assessment Updated by [email or web address]: Destiny Childs on 08/10/18 11:15 am * Is the patient Alert and Oriented? Yes * How many steps to enter\exit or inside your home? None * PCP Dr. Caldera * Pharmacy [facility] * Preadmission Environment Home Alone * ADLs Independent * Equipment Crutch Rolling Walker * List name and contact numbers for known caregivers / representatives who currently or will assist patient after discharge: Bronwyn Daniel - daughter - he couldn't remember phone number. * Verbal permission to speak to the caregivers and representatives has been obtained from the patient. Yes * Community resources currently utilized None * Additional services required to return to the preadmission environment? No * Can the patient safely return to the preadmission environment? Yes * Has this patient been hospitalized within the prior 30 days at any hospital? No Coverage Notice Reviewer: [id number] Nae Garduno Notice Issued Date-Time: 08/14/2018 10:40 Notice Type: IM Discharge Notice Notice Delivered To: Patient Relationship to Patient: Java Programmer Name: Delivery Method: HAND - Hand Delivered Pina Days: Prior Verbal Notification: Recipient Understood Notice: Yes Recipient Signature: Yes Med Rec Note Co-signed by Attending: Coverage Notice Comment: Last DP export: 08/14/18 9:31 a Patient Name: JAY JAY MADRID Page [phone] at 1051 All edits/amendments must be made on the electronic document DICTATION DATE: 08/14/18 105 TERRAZZO GRINDER: MO 08/14/18 1050 RPT#: [id number] DC DATE: STATUS: ADM IN [facility] [address] [place] [address] END OF REPORT
--- NOTE | 2018-08-14 11:36 | NUR ---
Recieved a call from Jessie Gann at [facility]. This patient has been approved for the ARU for 7 days. U/D due on 08/21/18 . Auth# [id number]. Jose Garduno CM made aware of patient acceptance. Yaima Frankel RN CL
[2018-08-14 13:01] VITALS: BP 148/62
--- NOTE | 2018-08-14 13:47 | NUR ---
Nutrition Follow Up: Pt was asleep at the time of RD visit. Interview deferred. Diet: AHA PO Intake: 56% meal avg; pt ate 100% x 2 meals today No BM since admit Wt stable I>O Meds and labs reviewed Rec continue current diet. RD following.
[2018-08-14] MEDS ORDERED: VIBRAMYCIN 100100 MG PO (14:14)
[2018-08-14] MEDS ORDERED: PROTONIX40 MG PO (14:15)
[2018-08-14] MEDS ORDERED: FLORAJEN3 CAPS460 MG PO (14:15)
--- NOTE | 2018-08-14 14:40 | NUR ---
PT WAS ACCEPTED INTO REHAB. DISCUSSED WITH PRIMARY AND HE WILL BE DISCHARGED. EXPLAINED TO PT AND HE IS HAPPY ABOUT THIS AND IS GOING TO CALL HIS DAUGHTER TO INFORM THEM. PT RESTING QUIETLY IN BED AND DENIES ANY CURRENT PAIN OR NEEDS. CL IN REACH, BED IN LOWEST, SIDE RAILS X2. WILL CTM.
--- NOTE | 2018-08-14 14:43 | NUR ---
OT NOTE: PT PERFORMED BETTER TODAY; BED MOB WITH CGA; TRANSFERS WITH MIN ASSIST; AMB WITH USE OF WALKER WITH MIN ASSIST FOR IN ROOM AMBULAITON. MIN ASSIST TO KATH SOCKS; SET UP FOR SIMPLE GROOMING. HEMANTH KELLY, OTR/L
--- NOTE | 2018-08-14 15:30 | MORECARE ---
CASE MANAGEMENT DISCHARGE SUMMARY PATIENT: JAY JAY MADRID UNIT: [id number] ADM DATE: 08/10/18 AGE: 73 : 44 SEX: M ROOM/BED: D.2139 AUTHOR: PHUONG HADLEY PHYSICIAN: REFERRING PHYSICIAN: STEPHANIE REYES MD DATE OF SERVICE: 08/14/18 Discharge Plan Patient Name: JAY JAY MADRID [facility] 1945 Planned Disposition: Inpatient Rehab Anticipated Discharge Date: 08/14/18 Discharge Date: Expected LOS: 4 Initial Reviewer: [id number] Initial Review Date: 08/10/2018 Generated: 08/14/18 4:29 pm Comments DCP- Discharge Planning Updated by [id number]: Liam Garduno on 08/14/18 2:[address] Patient Name: JAY JAY MADRID Encounter No: [id number] : 1945 Primary Insurance: NOVASYSMCR Anticipated DC Date: 08-14-2018 Planned Disposition: Inpatient Rehab External Planned Provider: [facility] DCP follow-up note: CM RECEIVED DISCHARGE ORDER, RECEIVED CALL FROM NATHALY OF INPATIENT REHAB, THEY WILL ACCEPT PT TO REHAB TODAY, ROOM 1114-B IS READY. PT NOTIFIED AND IN AGREEMENT WITH DISCHARGE TO REHAB. TREE PRUNER NURSE AND LEVI MAKER NOTIFIED. EN Eric DCP- Discharge Planning Updated by [email or web address]: Liam Garduno on 08/14/18 9:[address] Patient Name: JAY JAY MADRID Encounter No: [id number] : 1945 Primary Insurance: NOVASYSMCR Anticipated DC Date: 08-14-2018 Planned Disposition: Inpatient Rehab External Planned Provider: [facility] DCP follow-up note: CM RECEIVED CALL FROM DARCY OF [facility], THEY HAVE INSURANCE AUTHORIZATION FOR INPATIENT REHAB AND CAN ACCEPT TODAY. CM NOTIFIED PT IN ROOM WHO IS IN AGREEMENT WITH DISCHARGE TO INPATIENT REHAB. IMPORTANT MESSAGE FROM MEDICARE PROVIDED AND EXPLAINED. NOTIFY INPATIENT REHAB WHEN DISCHARGE ORDER RECEIVED. [facility] TO CONTACT MED 2 NURSE WITH ROOM NUMBER WHEN READY TO ACCEPT PT AND NURSE REPORT. Liam Rainsburg, CASE MANAGEMENT DCP- Discharge Planning Updated by [id number]: Liam Garduno on 08/12/18 3:[address] Patient Name: JAY JAY MADRID Encounter No: [id number] : 1945 Primary Insurance: NOVASYCR Anticipated DC Date: 08-15-2018 Planned Disposition: Inpatient Rehab External Planned Provider: [facility] DCP follow-up note: CM RECEIVED ORDER FOR INPATIENT REHAB PRESCREENING, MET WITH PT IN ROOM, DISCUSSED AVAILABILTY OF REHAB SERVICES, PROVIDERS AND LOCATIONS. PT WANTS REHAB AT [place] ONLY, REPORTS HAVING BEEN THERE BEFORE WITH GOOD RESULT. PT REPORTS HIS THREE MONTHS AGO AND PT HAS BEEN SICK AND GOTTEN WEAK. PT PLANS TO RETURN HOME ALONE AFTER REHAB. CM WAITING INPATIENT REHAB PRESCREENING RESULT AND ADMISSION DETERMINATION FROM [facility]. PT WILL REQUIRE PRIOR AUTHORIZATION FOR ANY REHAB SERVICES HE HAS MANAGED MEDICARE INSURANCE. EN Eric DCP- Discharge Planning Updated by [id number]: Destiny Childs on 08/10/18 10:[address] Patient Name: JAY JAY MADRID Admission Status: ER Accout number: [id number] Admission Date: 08-10-2018 : 1945 Admission Diagnosis: Attending: STEPHANIE REYES Current LOS: 1 Anticipated DC Date: 08-15-2018 Planned Disposition: [facility] Discharge Planning Comments: CM met with patient to complete initial dc planning assessment. CM educated patient on the CM role and verbal consent given by patient to complete assessment. Patient lives at home alone. He reports he is independent in his care at home. At discharge patient plans to return home alone and feels this is a safe discharge. In reviewing chart patient has increased weakness and multiple falls. Nurse reports he is slightly confused and slow to follow commands. He seemed to be able to answer questions for CM accurately for this assessment. CM discussed availability of home health, rehab services, and medical equipment. Patient denied known discharge needs at this time. CM requested a PT consult and order received by Dr. Mancuso for a PT consult. Patient may need rehab or home health at discharge due to his weakness and falls. CM will continue to follow and will assist as needed with dc plans/needs. Ring Stamper: Destiny Childs DCPIA - Discharge Planning Initial Assessment Updated by [id number]: Destiny Childs on 08/10/18 11:15 am * Is the patient Alert and Oriented? Yes * How many steps to enter\exit or inside your home? None * PCP Dr. Caldera * Pharmacy [facility] * Preadmission Environment Home Alone * ADLs Independent * Equipment Crutch Rolling Walker * List name and contact numbers for known caregivers / representatives who currently or will assist patient after discharge: Bronwyn Daniel - daughter - he couldn't remember phone number. * Verbal permission to speak to the caregivers and representatives has been obtained from the patient. Yes * Community resources currently utilized None * Additional services required to return to the preadmission environment? No * Can the patient safely return to the preadmission environment? Yes * Has this patient been hospitalized within the prior 30 days at any hospital? No Coverage Notice Reviewer: [id number] Nae Garduno Notice Issued Date-Time: 08/14/2018 10:40 Notice Type: IM Discharge Notice Notice Delivered To: Patient Relationship to Patient: Gameroom Technician Name: Delivery Method: HAND - Hand Delivered Pina Days: Prior Verbal Notification: Recipient Understood Notice: Yes Recipient Signature: Yes Med Rec Note Co-signed by Attending: Coverage Notice Comment: Last DP export: 08/14/18 9:50 a Patient Name: JAY JAY MADRID Page [id number] at 1530 All edits/amendments must be made on the electronic document DICTATION DATE: 08/14/181528 DIRECTOR OF EMPLOYER SERVICES: [place] 08/14/18 152 RPT#: [id number] CT DATE: STATUS: ADM IN [facility] [address] [place] [address] END OF REPORT
--- NOTE | 2018-08-14 16:26 | NUR ---
D/C PTS L.AC PIV WITH CATHETER FULLY INTACT. CALLED REPORT TO [facility] AND THEY ARE READY FOR PT WHENEVER. DISCHARGE TEACHING PROVIDED AND PAPERS SIGNED. PT VERBALIZED UNDERSTANDING AND DENIES ANY QUESTIONS OR CONCERNS. WILL COLLECT BELONGINGS AND ASSIST PT DOWN VIA W/C.
--- NOTE | 2018-08-14 16:29 | NUR ---
PT WANTING TO GET UP OOB R/T BEING CONFUSED AND ASKING ABOUT TIEING HIS SHOES AND LEAVING. WAS GOING TO LET PT SIT UP IN A W/C FOR A LITTLE BIT HOWEVER HIS L.KNEE PAIN IS TOO SEVERE AND HE WONT BEND HIS LEG CURRENTLY. PULLED PT UP IN BED AND REPOSITIONED FOR COMFORT AND PROVIDED WITH TYLENOL TO HELP WITH THE PAIN AND WILL WAIT FOR PHYSICAL THERAPY TO SEE AND EVALUATE. PT VOICED THANKS AND DENIES ANY NEEDS. CL IN REACH, BED IN LOWEST, SIDE RAILS X2 AND BUILT IN BED ALARM ON. WILL CTM.
--- NOTE | 2018-08-14 18:16 | NUR ---
PT FINISHED DINNER. I ASSISTED HIM INTO W/C AND WHEELED HIM DOWN TO REHAB. DAUGHTER AT SIDE AND HAS ALL HIS BELONGINGS. RETURNED TELEMETRY TO [facility] [employer] [facility]. NO FURTHER NEEDS.
--- NOTE | 2018-08-14 21:33 | NUR ---
OT NOTE: PT COMPLETED BED MOB WITH SBA. PT COMPLETED TRANSFERS WITH MIN A. PT COMPLETED HYGIENE TASK WITH CGA. THANK YOU, MICHAEL ALBRECHT
== END 2018-08-14 18:17 | DRG 690 ==
LOC: D.ER 07:08 → D.M2 10:08 → D.EDHOLD 10:08 → D.M2 10:25
PROVIDERS: Emergency Medicine; ADMIT Family Medicine
DX: N10 Acute pyelonephritis (principal); E11.40 Type 2 diabetes mellitus with diabetic neuropathy, unspecified; I10 Essential (primary) hypertension; Z95.0 Presence of cardiac pacemaker; B95.61 Methicillin susceptible Staphylococcus aureus infection as the cause of diseases classified elsewhere

== ENCOUNTER 2018-08-14 14:45 | Inpatient (IN) | payer MEDICARE ==
[~2018-08-14] VITALS: Ht 175.3 cm; Wt 77.1 kg
[~2018-08-14 14:45] MED LIST changes: +FLORAJEN3 CAPS460 MG PO; +PROTONIX40 MG PO; +VIBRAMYCIN 100100 MG PO
[2018-08-14 21:00] VITALS: BP 173/61
[2018-08-15 07:00] VITALS: BP 144/72
[2018-08-15 07:15] VITALS: BP 173/61; BMI 25.1
[2018-08-15 07:18] LABS: BASOPHILS 0.2 % (0-2); EOSINOPHILS 1.1 % (0-7); HEMOGLOBIN 14.3 g/dL (13.5-17.5); IMMATURE GRANULOCYTES 1.4 % (0-5); LYMPHOCYTES 17.4 % (15-50); MCH 28.5 pg (26.0-34.0); MCHC 34.9 g/dL (31.0-37.0); MCV 81.8 fL (80.0-100.0); MEAN PLATELET VOLUME 10.3 fL (7.4-10.4); MONOCYTES 9.1 % (2-11); NEUTROPHILS 70.8 % (40-80); PLATELET COUNT 190 10x3/uL (130-400); RBC 5.01 10x6/uL (4.20-6.10); RDW 13.8 % (11.5-14.5)
[2018-08-15 07:19] LABS: WBC 13.4 10x3/uL (4.8-10.8)
[2018-08-15 07:21] LABS: ANION GAP 15.3 mmol/L (8-16); CALCIUM 8.1 mg/dL (8.5-10.1); CARBON DIOXIDE 23.3 mmol/L (21.0-32.0); CREATININE - SERUM 1.7 mg/dL (0.6-1.3)
[2018-08-15 07:22] LABS: POTASSIUM - SERUM 4.6 mmol/L (3.5-5.1)
[2018-08-15 09:38] VITALS: Ht 175.3 cm; Wt 77.1 kg
[2018-08-15 20:46] VITALS: BP 158/77
[2018-08-16 09:03] VITALS: BP 125/47
[2018-08-16 21:19] VITALS: BP 133/72
[2018-08-17 07:11] LABS: ANION GAP 14.4 mmol/L (8-16); CALCIUM 8.2 mg/dL (8.5-10.1); CARBON DIOXIDE 24.5 mmol/L (21.0-32.0); CREATININE - SERUM 1.8 mg/dL (0.6-1.3); POTASSIUM - SERUM 3.9 mmol/L (3.5-5.1)
[2018-08-17 07:52] LABS: BASOPHILS 0.2 % (0-2); EOSINOPHILS 1.6 % (0-7); HEMOGLOBIN 14.3 g/dL (13.5-17.5); IMMATURE GRANULOCYTES 1.3 % (0-5); LYMPHOCYTES 16.7 % (15-50); MCH 28.5 pg (26.0-34.0); MCHC 34.9 g/dL (31.0-37.0); MCV 81.8 fL (80.0-100.0); MEAN PLATELET VOLUME 10.7 fL (7.4-10.4); MONOCYTES 8.8 % (2-11); NEUTROPHILS 71.4 % (40-80); PLATELET COUNT 224 10x3/uL (130-400); RBC 5.01 10x6/uL (4.20-6.10); RDW 14.2 % (11.5-14.5); WBC 14.6 10x3/uL (4.8-10.8)
[2018-08-17 08:55] VITALS: BP 152/80
[2018-08-17 20:04] VITALS: BP 136/58
[2018-08-18 08:15] VITALS: BP 136/77
[2018-08-18 08:33] VITALS: BP 136/77
[2018-08-18 20:00] VITALS: BP 130/54
[2018-08-19 07:18] LABS: ANION GAP 15.1 mmol/L (8-16); CALCIUM 8.5 mg/dL (8.5-10.1); CARBON DIOXIDE 24.6 mmol/L (21.0-32.0); CREATININE - SERUM 1.8 mg/dL (0.6-1.3); POTASSIUM - SERUM 3.7 mmol/L (3.5-5.1)
[2018-08-19 07:19] LABS: BASOPHILS 0.2 % (0-2); EOSINOPHILS 2.1 % (0-7); HEMATOCRIT 40.2 % (42.0-54.0); HEMOGLOBIN 14.3 g/dL (13.5-17.5); IMMATURE GRANULOCYTES 1.6 % (0-5); MCH 28.9 pg (26.0-34.0); MCHC 35.6 g/dL (31.0-37.0); MCV 81.2 fL (80.0-100.0); MEAN PLATELET VOLUME 10.6 fL (7.4-10.4); MONOCYTES 11.3 % (2-11); NEUTROPHILS 61.8 % (40-80); PLATELET COUNT 240 10x3/uL (130-400); RBC 4.95 10x6/uL (4.20-6.10); WBC 13.1 10x3/uL (4.8-10.8)
[2018-08-19 08:00] VITALS: BP 127/52
--- NOTE | 2018-08-19 10:28 | RHP ---
PATIENT: JAY JAY MADRID MEDICAL RECORD: [id number] ACCOUNT: [id number] LOCATION:[facility]1114 : 43 ADMISSION DATE: 08/14/18 REHABILITATION HISTORY AND PHYSICAL EXAMINATION POST ADMISSION PHYSICIAN EXAMINATION DATE OF ADMISSION: 08/14/2018 ADMITTING DIAGNOSIS: Debility associated with pyelonephritis. HISTORY OF PRESENT ILLNESS: The patient is a 73-year-old gentleman admitted with debility secondary to pyelonephritis. He has had renal insufficiency, UTI, and multiple falls, presented to the Emergency Room on 08/10/2018 complain of generalized weakness, worse in the past month, it was pretty severe upon admission, was worse when he was active or tried to get up. He does relate that he was having fevers, dysuria, nausea, nonproductive cough, chills and multiple falls with a faint feeling. 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 EKG was normal. His blood pressures were noted to be elevated at times with 170s in the systolic. He had decreased air flow in his chest. His urine was positive for nitrites. He had renal insufficiency. CT of his head and chest x-ray showed no acute findings. He was admitted on IV antibiotics and IV fluids, placed on appropriate medications. He has been placed on blood pressure medications, proton pump inhibitor for GI prophylaxis and DVT prophylaxis with serial compression devices. Previously, he was independent with ADLs and mobility. Currently, he is minimal to mod assist for ADLs and mobility. He has been on telemetry. He has had a positive urine and blood cultures. He was weak and tires easily. All these are barriers to his discharge. He does live alone. He has had multiple falls and the generalized weakness has made it even worse. COMORBIDITIES: Include acute pyelonephritis, dysuria, renal insufficiency, multiple falls, nonproductive cough, urinary hesitancy, fever, leukocytosis, UTI, generalized weakness, diabetes, neuropathy, hyperglycemia, hepatitis, AFib. He has had a history of pacemaker placement, sleep apnea, urine culture that was positive for staph and also systolic hypertension. PAST MEDICAL HISTORY: Significant for neuropathy, cataracts, diabetes, hepatitis, sick sinus syndrome, arrhythmias, hypertension, sleep apnea, arthritis. PAST SURGICAL HISTORY: Includes gallbladder surgery, cataract surgery, he had a scrotal injury. He has had oral surgery, left knee scope, pacemaker and defibrillator placement, shoulder surgery. He has had a heart catheterization, but no stents. ALLERGIES: No known drug allergies. CURRENT MEDICATIONS: Include Zofran 4 mg every 4 hours p.r.n.; MiraLax 17 grams in 8 ounces of water daily; Betapace 80 mg daily; Protonix 40 mg daily; lisinopril 20 mg daily; Floranex 460 mg daily; doxycycline he is on 100 mg b.i.d.; Pravachol 40 mg at bedtime; diltiazem 240 mg daily; glipizide XL 10 mg with meal; hydrochlorothiazide 12.5 mg daily and he is on Eliquis 2.5 mg b.i.d., and Elavil 25 mg at bedtime. HABITS: No current alcohol or tobacco use. HISTORY AND PHYSICAL [id number] JAY JAY MADRID FAMILY HISTORY: Noncontributory. SOCIAL HISTORY: The patient hopes to return back home and hopefully get back to his job working in security. REVIEW OF SYSTEMS: GENERAL: He does complain of weakness and fatigue. HEENT: He denies cold, cough, or congestion. CARDIOVASCULAR: Denies any chest pain. PHYSICAL EXAMINATION: VITAL SIGNS: Stable. He is afebrile. His blood pressure is 173/61. His sat is 94%, respirations are 18, his pulse is 60. He is afebrile at 98.4. GENERAL: A well-developed gentleman in no acute distress, alert upon exam. HEENT: Normocephalic and atraumatic. Mucosa moist. NECK: Supple. No lymphadenopathy. LUNGS: Clear in upper rodriguez. HEART: He has an irregular rate and rhythm. ABDOMEN: Benign. EXTREMITIES: No clubbing, cyanosis or edema. NEUROLOGIC: He does have noted proximal muscle weakness. LABORATORY DATA: White count is 13.4, H&H of 14 and 41 and platelet count is 190. Sodium 136, potassium 4.6, BUN and creatinine of 19 and 1.7 and blood sugar is noted to be 143. ASSESSMENT: This is a 73-year-old gentleman admitted to the rehab with a working diagnosis of debility associated with pyelonephritis and multiple falls. The patient has potential to make improvement. We instituted the following multidisciplinary therapies include, but not limited to physical, occupational, respiratory, speech, nutritional services, prosthetics and orthotics. Given his complex medical condition and risks for more complications, rehabilitation services cannot be provided at a low level of care such as half-way facility. PLAN: 1. Admit to [facility] rehab for intensive inpatient therapy to include the following disciplines: A. Physical therapy to improve gait, all transfer skills and bed mobility to a modified independent level. B. Occupational therapy to a modified independent level. C. Case management to assist with discharge planning and placement options. D. Nutrition to assist with nutritional needs. E. Rehabilitation nursing to assist in monitoring the patient's underlying medical conditions and to assist with any type of bowel or bladder management. 2. The patient's current medication and medical care will be continued. 3. The patient will be placed on standard fall precautions. 4. The patient's estimated length of stay is approximately 7-10 days. 5. Discuss patient during care team staff meeting this week. TRANSINT:[id number] Voice Confirmation ID: [id number] DOCUMENT ID: [id number] [employer] notes whether there has been none or any medical/functional change since admission: HISTORY AND PHYSICAL [id number] JAY JAY MADRID - No change since preadmission screen. [employer] attests patient continues to be appropriate for IRF: - Continues to be appropriate. LARA ABDUL MD at 1028 CC: [id number] DICTATION DATE: 08/15/18 1118 SENIOR ASSET MANAGER: 08/15/18 1137 ADM IN [facility] [address] [place] [address]
[2018-08-19 21:37] VITALS: BP 152/71
[2018-08-20 08:00] VITALS: BP 137/63
[2018-08-20 19:30] VITALS: BP 135/71
[2018-08-21 07:00] VITALS: BP 135/78
[2018-08-21 07:06] LABS: CALCIUM 8.8 mg/dL (8.5-10.1); CARBON DIOXIDE 25.3 mmol/L (21.0-32.0); CREATININE - SERUM 1.8 mg/dL (0.6-1.3)
[2018-08-21 07:07] LABS: POTASSIUM - SERUM 4.3 mmol/L (3.5-5.1)
[2018-08-21 07:40] LABS: BASOPHILS 0.1 % (0-2); EOSINOPHILS 1.3 % (0-7); HEMATOCRIT 41.2 % (42.0-54.0); HEMOGLOBIN 14.3 g/dL (13.5-17.5); IMMATURE GRANULOCYTES 1.2 % (0-5); LYMPHOCYTES 22.5 % (15-50); MCH 28.5 pg (26.0-34.0); MCHC 34.7 g/dL (31.0-37.0); MCV 82.1 fL (80.0-100.0); MEAN PLATELET VOLUME 10.6 fL (7.4-10.4); MONOCYTES 10.3 % (2-11); NEUTROPHILS 64.6 % (40-80); PLATELET COUNT 233 10x3/uL (130-400); RBC 5.02 10x6/uL (4.20-6.10); RDW 14.4 % (11.5-14.5); WBC 13.9 10x3/uL (4.8-10.8)
[2018-08-21 21:21] VITALS: BP 131/68
[2018-08-22 20:19] VITALS: BP 120/64
[2018-08-23 08:14] VITALS: BP 128/56
[2018-08-23 19:32] VITALS: BP 160/60
[2018-08-24 07:33] LABS: ANION GAP 15.1 mmol/L (8-16); CALCIUM 8.9 mg/dL (8.5-10.1); CARBON DIOXIDE 24.4 mmol/L (21.0-32.0); CREATININE - SERUM 1.9 mg/dL (0.6-1.3); POTASSIUM - SERUM 4.5 mmol/L (3.5-5.1)
[2018-08-24 08:18] LABS: BASOPHILS 0.3 % (0-2); EOSINOPHILS 1.4 % (0-7); HEMATOCRIT 40.9 % (42.0-54.0); HEMOGLOBIN 14.1 g/dL (13.5-17.5); IMMATURE GRANULOCYTES 0.9 % (0-5); LYMPHOCYTES 24.3 % (15-50); MCH 28.3 pg (26.0-34.0); MCHC 34.5 g/dL (31.0-37.0); MCV 82.1 fL (80.0-100.0); MEAN PLATELET VOLUME 10.5 fL (7.4-10.4); NEUTROPHILS 63.1 % (40-80); PLATELET COUNT 226 10x3/uL (130-400); RBC 4.98 10x6/uL (4.20-6.10); RDW 14.3 % (11.5-14.5); WBC 13.5 10x3/uL (4.8-10.8)
[2018-08-24 08:31] VITALS: BP 152/77
[2018-08-24 20:00] VITALS: BP 129/61
[2018-08-25 08:20] VITALS: BP 172/73
[2018-08-25 20:00] VITALS: BP 137/63
[2018-08-26 08:00] VITALS: BP 150/79
[2018-08-26 08:34] LABS: ANION GAP 12.9 mmol/L (8-16); CALCIUM 8.8 mg/dL (8.5-10.1); CARBON DIOXIDE 27.6 mmol/L (21.0-32.0); CREATININE - SERUM 1.8 mg/dL (0.6-1.3); POTASSIUM - SERUM 4.5 mmol/L (3.5-5.1)
[2018-08-26 08:55] LABS: BASOPHILS 0.2 % (0-2); EOSINOPHILS 2.2 % (0-7); HEMATOCRIT 41.5 % (42.0-54.0); HEMOGLOBIN 14.3 g/dL (13.5-17.5); IMMATURE GRANULOCYTES 0.9 % (0-5); LYMPHOCYTES 25.2 % (15-50); MCH 28.3 pg (26.0-34.0); MCHC 34.5 g/dL (31.0-37.0); MCV 82.2 fL (80.0-100.0); MEAN PLATELET VOLUME 10.8 fL (7.4-10.4); MONOCYTES 9.1 % (2-11); NEUTROPHILS 62.4 % (40-80); PLATELET COUNT 204 10x3/uL (130-400); RBC 5.05 10x6/uL (4.20-6.10); RDW 14.1 % (11.5-14.5); WBC 10.2 10x3/uL (4.8-10.8)
[2018-08-26] MEDS ORDERED: BETAPACE 120 M120 MG PO (09:05)
== END 2018-08-26 17:47 | disposition home health service (06) | DRG 948 ==
LOC: D.REHAB 14:45
PROVIDERS: ADMIT Emergency Medicine; ATTEND Emergency Medicine
DX: R53.81 Other malaise (principal); N10 Acute pyelonephritis; N39.0 Urinary tract infection, site not specified; R30.0 Dysuria; E11.40 Type 2 diabetes mellitus with diabetic neuropathy, unspecified; E11.65 Type 2 diabetes mellitus with hyperglycemia; R53.1 Weakness; R50.9 Fever, unspecified; R39.11 Hesitancy of micturition; R05 Cough; I48.91 Unspecified atrial fibrillation; Z95.0 Presence of cardiac pacemaker; K75.9 Inflammatory liver disease, unspecified; N28.9 Disorder of kidney and ureter, unspecified; D72.829 Elevated white blood cell count, unspecified; I95.1 Orthostatic hypotension; I25.10 Atherosclerotic heart disease of native coronary artery without angina pectoris; G47.30 Sleep apnea, unspecified; I10 Essential (primary) hypertension

== ENCOUNTER 2019-05-27 09:03 | Emergency (ER) | payer OTHER ==
[~2019-05-27] VITALS: Ht 175.3 cm; Wt 88.6 kg
[~2019-05-27 09:03] MED LIST changes: +BETAPACE 120 M120 MG PO
[2019-05-27 09:04] VITALS: Ht 175.3 cm; Wt 88.6 kg
[2019-05-27 11:37] VITALS: BP 184/99
== END 2019-05-27 11:36 ==
LOC: D.ER 09:03
DX: S50.11XA Contusion of right forearm, initial encounter (principal); X58.XXXA Exposure to other specified factors, initial encounter; E11.40 Type 2 diabetes mellitus with diabetic neuropathy, unspecified; Z79.84 Long term (current) use of oral hypoglycemic drugs; I10 Essential (primary) hypertension; Z95.0 Presence of cardiac pacemaker

== ENCOUNTER 2020-10-16 15:40 | Emergency (ER) | payer OTHER ==
[~2020-10-16] VITALS: Ht 175.3 cm; Wt 113.6 kg
[~2020-10-16 15:40] MED LIST changes: +CUBICIN500 MG IV; +HYDRALAZINE HCL50 MG PO; +LISINOPRIL40 MG PO; +LYRICA75 MG PO; +MECLIZINE HCL25 MG PO; +METOPROLOL TART50 MG PO; +PREDNISONE10 MG PO; +ROCEPHIN 1 GM/D51 G1; +SYNTHROID50 MCG PO
[2020-10-16 15:41] VITALS: BP 161/92; Ht 175.3 cm; Wt 113.6 kg
[2020-10-16 16:37] LABS: BASOPHILS 0.4 % (0-2); EOSINOPHILS 3.7 % (0-7); HEMATOCRIT 41.5 % (42.0-54.0); HEMOGLOBIN 13.8 g/dL (13.5-17.5); IMMATURE GRANULOCYTES 0.6 % (0-5); LYMPHOCYTE ABS# 1.97 10x3/uL (1.32-3.57); LYMPHOCYTES 20.8 % (15-50); MCH 27.5 pg (26.0-34.0); MCHC 33.3 g/dL (31.0-37.0); MCV 82.7 fL (80.0-100.0); MEAN PLATELET VOLUME 10.5 fL (7.4-10.4); NEUTROPHIL ABS# 6.28 10x3/uL (1.78-5.38); NEUTROPHILS 66.5 % (40-80); PLATELET COUNT 206 10x3/uL (130-400); RBC 5.02 10x6/uL (4.20-6.10); RDW 14.4 % (11.5-14.5); WBC 9.5 10x3/uL (4.8-10.8)
[2020-10-16 17:13] LABS: UDS - AMPHET NEGATIVE QUAL (NEGATIVE); UDS - BARB NEGATIVE QUAL (NEGATIVE); UDS - BENZO NEGATIVE QUAL (NEGATIVE); UDS - COCAINE NEGATIVE QUAL (NEGATIVE); UDS - OPIATE NEGATIVE QUAL (NEGATIVE); UDS - PCP NEGATIVE QUAL (NEGATIVE); UDS - THC NEGATIVE QUAL (NEGATIVE)
[2020-10-16 17:17] LABS: ANION GAP 11.6 mmol/L (8-16); CALCIUM 8.8 mg/dL (8.5-10.1); CARBON DIOXIDE 26.8 mmol/L (21.0-32.0); CREATININE - SERUM 2.5 mg/dL (0.6-1.3); POTASSIUM - SERUM 4.4 mmol/L (3.5-5.1)
[2020-10-16 17:28] LABS: BILIRUBIN - TOTAL 1.14 mg/dL (0.2-1.3); PROTEIN - SERUM 6.8 g/dL (6.4-8.2)
[2020-10-16 18:13] LABS: BILIRUBIN NEGATIVE (NEGATIVE); KETONE NEGATIVE (NEGATIVE); NITRITE NEGATIVE (NEGATIVE); UROBILINOGEN NORMAL mg/dL (< 2)
== END 2020-10-16 18:24 | disposition home or self-care (01) ==
LOC: D.ER 15:40
PROVIDERS: Family Medicine
DX: R44.0 Auditory hallucinations (principal); T43.015A Adverse effect of tricyclic antidepressants, initial encounter; R44.1 Visual hallucinations; E11.9 Type 2 diabetes mellitus without complications; I10 Essential (primary) hypertension; E78.5 Hyperlipidemia, unspecified; Z95.0 Presence of cardiac pacemaker